=== PATIENT | female | born 1955 | race Caucasian/White ===

== ENCOUNTER 2016-05-03 15:31 | Emergency (ER) | payer OTHER ==
[2016-05-03] MEDS ORDERED: HYDROmorphone 1 MG/ML 1 ML SYRINGE IVP STA (16:08)
[2016-05-03] MEDS ORDERED: SODIUM CHLORIDE 0.9% 500 ML IV STA (16:08)
[2016-05-03] MEDS ORDERED: ONDANSETRON 4 MG/2 ML VIAL IVP STA (16:09)
--- NOTE | 2016-05-03 16:26 | ED ---
Abdominal Pain HPI - General Chief Complaint: Abdominal Pain Stated Complaint: abdominal pain Time Seen by Provider: 05/03/16 15:52 Source: patient Mode of arrival: ambulatory - History of Present Illness Initial Comments: Extremity 1-year-old female patient comes in with complaints of right lower quadrant abdominal pain that radiates to her back. Patient states that this pain started last evening and has worsened today. Patient describes the pain as sharp and stabbing. She states it gets worse with any movement. Patient states she's taken some ibuprofen but has not helped with the pain at all. Patient states the pain is constant. is nauseated, but denies any vomiting. Patient has been having diarrhea for the last 2 days she does describes the stool as "black". Sent also was treated last Wednesday and for epistaxis at [facility]. On she had packing placed to the right nare was started on Augmentin. Patient states that she bled a lot at that time which caused her to be lightheaded. She states she swallowed a lot of blood. Patient denies any headache, dizziness, chest pain, weakness, hematuria, dysuria, urgency, or frequency. No fever or chills. She denies any history of bleeding disorders, denies having epistaxis in the past. Patient states that no lab work was performed at [facility]. - Related Data Home Medications Medication Instructions Recorded Confirmed Acetaminophen Tab [Tylenol Tab] 1,000 mg PO Q6HR PRN 05/03/16 05/03/16 Amoxic-Pot Clav 875-125Mg 1 tab PO Q12HR 05/03/16 05/03/16 [Augmentin 875-125] Oxymetazoline 0.05% Nasl Agra 2 spray EA NOSTRIL BID 05/03/16 05/03/16 [Afrin 0.05% Nasal Agra] Previous Rx's Medication Instructions Recorded Hydrocodone/Acetaminophen [Butler 1 tab PO Q6HR PRN #20 tab 05/03/16 5-325] Ondansetron Odt [Zofran Odt] 4 mg PO Q8HR PRN #10 tab 05/03/16 Tamsulosin [Flomax] 0.4 mg PO DAILY #7 cap 05/03/16 Allergies Allergy/AdvReac Type Severity Reaction Status Date / Time sulfamethoxazole Allergy Rash/Hives Verified 05/03/16 16:01 [From Bactrim] trimethoprim [From Bactrim] Allergy Rash/Hives Verified 05/03/16 16:01 Review of Systems ROS Statement: Those systems with pertinent positive or pertinent negative responses have been documented in the HPI. ROS Other: All systems not noted in ROS Statement are negative. Past Medical History Past Medical History: No Reported History History of Any Multi-Drug Resistant Organisms: None Reported Past Surgical History: No Surgical Hx Reported Past Psychological History: No Psychological Hx Reported Smoking Status: Never smoker Past Alcohol Use History: None Reported Past Drug Use History: None Reported General Exam Limitations: no limitations General appearance: alert, in no apparent distress Head exam: Present: atraumatic, normocephalic Eye exam: Present: normal appearance, PERRL, EOMI. Absent: scleral icterus, conjunctival injection, nystagmus, periorbital swelling Pupils: Present: normal accommodation ENT exam: Present: normal oropharynx, mucous membranes dry, other (Nasal packing present right nare). Absent: mucous membranes moist Neck exam: Present: normal inspection, full ROM. Absent: tenderness, meningismus, lymphadenopathy, thyromegaly Respiratory exam: Present: normal lung sounds bilaterally. Absent: respiratory distress, wheezes, rales, rhonchi Cardiovascular Exam: Present: regular rate, normal rhythm, normal heart sounds. Absent: irregular rhythm, systolic murmur, diastolic murmur, clicks GI/Abdominal exam: Present: soft, tenderness (Right lower quadrant, positive Rosving's Sign. ), rebound (Right Lower quadrant), normal bowel sounds. Absent : distended, guarding, rigid, diminished bowel sounds, hyperactive bowel sounds , hypoactive bowel sounds, organomegaly, mass, hernia Extremities exam: Present: normal inspection Back exam: Present: normal inspection. Absent: CVA tenderness (R), CVA tenderness (L) Neurological exam: Present: alert, oriented X3, CN II-XII intact Psychiatric exam: Present: normal affect, anxious Skin exam: Present: warm, dry, intact, pallor. Absent: normal color, rash, cyanosis, erythema, urticaria Course Vital Signs 05/03/16 15:44 Temperature 97.4 F L Pulse Rate 104 H Respiratory 20 Rate Blood Pressure 124/69 O2 Sat by Pulse 98 Oximetry - Reevaluation(s) Reevaluation #1: 05/03/16 17:14 Went into check on patient. Patient states pain nausea improved with medications. Did inform patient of urinary tract infection, but also informed patient that we will still be obtaining a CT of the abdomen and pelvis to evaluate for further abdominal processes. Patient agreed to have this test done. Will be waiting for that result. Medical Decision Making - Medical Decision Making 60-year-old female patient presented to emergency department today with complaints of right lower quadrant pain that radiated to her back. Her labs were unremarkable. Urinalysis shows large amount of blood and greater than [address] of the abdomen and pelvis was positive for a 3 mm stone in the right renal pelvis. Findings and patient symptoms consistent with kidney stone. She will be discharged home with a prescription for Butler, Flomax, and Zofran for symptom management. Patient instructed to follow up with the urologist. Instructed to return for any new, worsening, or concerning symptoms. Patient will continue Augmentin and keep her follow-up appointment with ENT for management of epistaxis and nasal packing. Patient verbalizes understanding and agrees with this plan. - Lab Data Result diagrams: 05/03/16 16:23 05/03/16 16:23 Lab Results 05/03/16 05/03/16 05/03/16 Range/Units 16:23 16:23 16:23 WBC 8.4 (3.8-10.6) k/uL RBC 4.48 (3.80-5.40) m/uL Hgb 13.7 (11.4-16.0) gm/dL Hct 41.4 (34.0-46.0) % MCV 92.5 (80.0-100.0) fL MCH 30.6 (25.0-35.0) pg MCHC 33.0 (31.0-37.0) g/dL RDW 13.5 (11.5-15.5) % Plt Count 359 (150-450) k/uL Neutrophils % 74 % Lymphocytes % 18 % Monocytes % 3 % Eosinophils % 2 % Basophils % 1 % Neutrophils # 6.2 (1.3-7.7) k/uL Lymphocytes # 1.5 (1.0-4.8) k/uL Monocytes # 0.3 (0-1.0) k/uL Eosinophils # 0.2 (0-0.7) k/uL Basophils # 0.1 (0-0.2) k/uL PT (9.0-12.0) sec INR (<1.1) APTT (22.0-30.0) sec Sodium 142 (137-145) mmol/L Potassium 4.5 (3.5-5.1) mmol/L Chloride 106 (98-107) mmol/L Carbon Dioxide 26 (22-30) mmol/L Anion Gap 10 mmol/L BUN 22 H (7-17) mg/dL Creatinine 0.77 (0.52-1.04) mg/dL Est GFR (MDRD) Af Amer >60 (>60 ml/min/1.73 sqM) Est GFR (MDRD) Non-Af >60 (>60 ml/min/1.73 sqM) Glucose 100 H (74-99) mg/dL Calcium 9.9 (8.4-10.2) mg/dL Total Bilirubin 0.7 (0.2-1.3) mg/dL AST 32 (14-36) U/L ALT 37 (9-52) U/L Alkaline Phosphatase 89 (38-126) U/L Total Protein 7.8 (6.3-8.2) g/dL Albumin 4.4 (3.5-5.0) g/dL Amylase 67 (30-110) U/L Lipase 117 (23-300) U/L Urine Color Dark Brown Urine Appearance Cloudy H (Clear) Urine pH 5.5 (5.0-8.0) Ur Specific [place] 1.026 (1.001-1.035) Urine Protein 1+ H (Negative) Urine Glucose (UA) Negative (Negative) Urine Ketones Trace H (Negative) Urine Blood Large H (Negative) Urine Nitrate Negative (Negative) Urine Bilirubin Negative (Negative) Urine Urobilinogen 3.0 (<2.0) mg/dL Ur Leukocyte Esterase Small H (Negative) Urine RBC >182 H (0-5) /hpf Urine Mucus Few H (None) /hpf Urine Yeast (Budding) Many H (None) /hpf Blood Type Blood Type Recheck Antibody Screen Spec Expiration Date 05/03/16 05/03/16 Range/Units 16:23 17:45 WBC (3.8-10.6) k/uL RBC (3.80-5.40) m/uL Hgb (11.4-16.0) gm/dL Hct (34.0-46.0) % MCV (80.0-100.0) fL MCH (25.0-35.0) pg MCHC (31.0-37.0) g/dL RDW (11.5-15.5) % Plt Count (150-450) k/uL Neutrophils % % Lymphocytes % % Monocytes % % Eosinophils % % Basophils % % Neutrophils # (1.3-7.7) k/uL Lymphocytes # (1.0-4.8) k/uL Monocytes # (0-1.0) k/uL Eosinophils # (0-0.7) k/uL Basophils # (0-0.2) k/uL PT 10.5 (9.0-12.0) sec INR 1.0 (<1.1) APTT 22.8 (22.0-30.0) sec Sodium (137-145) mmol/L Potassium (3.5-5.1) mmol/L Chloride (98-107) mmol/L Carbon Dioxide (22-30) mmol/L Anion Gap mmol/L BUN (7-17) mg/dL Creatinine (0.52-1.04) mg/dL Est GFR (MDRD) Af Amer (>60 ml/min/1.73 sqM) Est GFR (MDRD) Non-Af (>60 ml/min/1.73 sqM) Glucose (74-99) mg/dL Calcium (8.4-10.2) mg/dL Total Bilirubin (0.2-1.3) mg/dL AST (14-36) U/L ALT (9-52) U/L Alkaline Phosphatase (38-126) U/L Total Protein (6.3-8.2) g/dL Albumin (3.5-5.0) g/dL Amylase (30-110) U/L Lipase (23-300) U/L Urine Color Urine Appearance (Clear) Urine pH (5.0-8.0) Ur Specific [place] (1.001-1.035) Urine Protein (Negative) Urine Glucose (UA) (Negative) Urine Ketones (Negative) Urine Blood (Negative) Urine Nitrate (Negative) Urine Bilirubin (Negative) Urine Urobilinogen (<2.0) mg/dL Ur Leukocyte Esterase (Negative) Urine RBC (0-5) /hpf Urine Mucus (None) /hpf Urine Yeast (Budding) (None) /hpf Blood Type O Positive Blood Type Recheck No Antibody Screen NEGATIVE Spec Expiration Date 05/06/2016 - 3173 - Radiology Data Radiology results: report reviewed CT abdomen and pelvis with contrast shows a 3 mm calculus in the right renal pelvis near the UPJ. No hydronephrosis is evident bilaterally. KUB x-ray shows a nonobstructive bowel gas pattern. Disposition Clinical Impression: Kidney stone on right side Disposition: HOME SELF-CARE Condition: Stable Instructions: Kidney Stones (ED) Additional Instructions: Increase fluids. Take qnyy-vca-[id number] ibuprofen as well as prescription pain medication for pain control. Follow-up with urologist. Return for any new, worsening, or concerning symptoms. Prescriptions: Hydrocodone/Acetaminophen [Butler 5-325] 1 tab PO Q6HR PRN #20 tab PRN Reason: Pain Ondansetron Odt [Zofran Odt] 4 mg PO Q8HR PRN #10 tab PRN Reason: Nausea Tamsulosin [Flomax] 0.4 mg PO DAILY #7 cap Referrals: Rizwana Goncalves DO [Primary Care Provider] - 1-2 days Rico You MD [STAFF PHYSICIAN] - 1-2 days Time of Disposition: 18:21
[2016-05-03 16:41] LABS: Basophils # (A) 0.1 k/uL (0-0.2); Basophils % (A) 1 %; CH 30.9; CHCM 33.5; Eosinophils # (A) 0.2 k/uL (0-0.7); Eosinophils % (A) 2 %; HCT 41.4 % (34.0-46.0); HDW 2.33; HGB 13.7 gm/dL (11.4-16.0); Luc # (Auto) 0.14; Luc % (Auto) 2; Lymphocytes # (A) 1.5 k/uL (1.0-4.8); Lymphocytes % (A) 18 %; MCH 30.6 pg (25.0-35.0); MCV 92.5 fL (80.0-100.0); Mean Platelet Volume 8.4; Monocytes # (A) 0.3 k/uL (0-1.0); Monocytes % (A) 3 %; Neutrophils # (A) 6.2 k/uL (1.3-7.7); Neutrophils % (A) 74 %; RBC 4.48 m/uL (3.80-5.40); RDW 13.5 % (11.5-15.5); WBC 8.4 k/uL (3.8-10.6); WBC (Perox) 8.83
--- NOTE | 2016-05-03 16:46 | XR ---
EXAMINATION TYPE: XR KUB DATE OF EXAM: 05/03/2016 4:42 PM CLINICAL HISTORY: Right lower quadrant pain with diarrhea. TECHNIQUE: 2 upright KUB images of the abdomen are obtained. COMPARISON: None. FINDINGS: Scattered gas is seen in non-distended small bowel loops. Gas and fecal material is seen in non-distended colon. Cholecystectomy clips are present. Underlying scoliosis with multilevel spurr ing and disc space narrowing is seen. No pneumoperitoneum is present. Lung bases are clear. No suspic ious calcifications are noted. IMPRESSION: Overall nonobstructive bowel gas pattern.
[2016-05-03 16:49] LABS: Appearance,Urine Cloudy (Clear); Bilirubin,Urine Negative (Negative); Glucose,Urine (UA) Negative (Negative); Ketones,Urine Trace (Negative); Leukocyte Esterase,Urine Small (Negative); Mucus,Urine Few /hpf; Nitrite,Urine Negative (Negative); PH, Urine 5.5 (5.0-8.0); Particle Count 29627; Protein,Urine 1+ (Negative); RBC,Urine >182 /hpf (0-5); Specific Gravity,Urine 1.026 (1.001-1.035); UA Billing (MACRO vs. MICRO) MICRO
[2016-05-03 16:51] LABS: ALT 37 U/L (9-52); AST 32 U/L (14-36); Alkaline Phosphatase 89 U/L (38-126); Amylase 67 U/L (30-110); Anion Gap 10 mmol/L; Blood Urea Nitrogen 22 mg/dL (7-17); Calcium 9.9 mg/dL (8.4-10.2); Carbon Dioxide 26 mmol/L (22-30); Chloride 106 mmol/L (98-107); Glucose 100 mg/dL (74-99); Non-African American GFR(MDRD) >60 (>60 ml/min/1.73 sqM); Potassium 4.5 mmol/L (3.5-5.1); Sodium 142 mmol/L (137-145); Total Bilirubin 0.7 mg/dL (0.2-1.3); Total Protein 7.8 g/dL (6.3-8.2)
[2016-05-03] MEDS ORDERED: RX INFO: IV CONTRAST WAS GIVEN 1 EACH MISC MISCELLANE PRN (17:11)
--- NOTE | 2016-05-03 18:01 | CT ---
EXAMINATION TYPE: CT abdomen pelvis w con DATE OF EXAM: 05/03/2016 5:50 PM HISTORY: Generalized pain not further specified CT DLP: 1632.3mGycm Automated Exposure Control for Dose Reduction was Utilized. CONTRAST: CT scan of the abdomen and pelvis is performed without oral but with IV Contrast, patient injected wi th 100 mL of Omnipaque 300. COMPARISON: None. FINDINGS: LUNG BASES: Dependent atelectatic change in both lung bases is present. LIVER/GB: Cholecystectomy clips are noted. PANCREAS: No significant abnormality is seen. SPLEEN: No significant abnormality is seen. ADRENALS: No significant abnormality is seen. KIDNEYS: There are 2 simple appearing cysts upper to mid pole level left kidney lateral aspect. There is 2 mm calculus lower pole calyx right kidney on coronal image 53 and 3 mm calculus in the right re nal pelvis on coronal image 55. There is symmetric cortical medullary uptake and excretion from both kidneys without evidence of hydronephrosis or obstructing renal calculi bilaterally. No intraluminal calculus is seen in bladder. BOWEL: Appendix is unremarkable from the cecum. There is no suspicious small or large bowel dilatatio n. UTERUS/ADNEXA: No gross abnormality seen. LYMPH NODES: No greater than 1cm abdominal or pelvic lymph nodes are appreciated. OSSEOUS STRUCTURES: There is moderate to advanced multilevel disc space narrowing and spurring with m ultilevel vacuum disc phenomenon. There is old fracture or limbus vertebra anterior superior L4 endpl ate. There is multilevel spurring in the spine. OTHER: No significant additional abnormality is seen. IMPRESSION: There is 3 mm calculus in right renal pelvis near UPJ. No hydronephrosis is evident bilat erally.
[2016-05-03 18:07] LABS: Partial Thromboplastin Time 22.8 sec (22.0-30.0); Prothrombin Time 10.5 sec (9.0-12.0)
[2016-05-03 18:35] VITALS: BP 112/56; PULSE 69; RESP 16; TEMP 96.8
== END 2016-05-03 18:35 | disposition home or self-care (01) ==
LOC: EC 15:31
DX: N20.0 Calculus of kidney (principal); R19.7 Diarrhea, unspecified; Z79.899 Other long term (current) drug therapy; Z88.2 Allergy status to sulfonamides
CPT/HCPCS: 36415; 86900; 86901; 80053; 82150; 83690; 85025; 85610; 85730; 86850; 81001; 87086; 74000; 74177; 99284; 96374; 96375; 96361; J2405; J1170

== ENCOUNTER → 2016-05-07 | Outpatient (CLI) | payer OTHER | END | disposition home or self-care (01) | LOC: LABPAT 12:15 | PROVIDERS: ATTEND Urology | DX: Z01.818 Encounter for other preprocedural examination (principal); N20.0 Calculus of kidney; R53.83 Other fatigue | CPT/HCPCS: 93005 ==

== ENCOUNTER 2016-05-08 13:35 | Day surgery (SDC) | payer OTHER ==
[2016-05-06 13:38] VITALS: BMI 33.5
[~2016-05-08 13:35] MED LIST: DEXAMETHASONE SOD PHOSPHATE 10 MG/ML 1 ML VIAL IV ONE; HYDROmorphone 1 MG/ML 1 ML SYRINGE IVP PRN; LACTATED RINGERS 1,000 ML IV SCH; MIDAZOLAM 2 MG/2 ML VIAL IV PRN; ONDANSETRON 4 MG/2 ML VIAL IVP ONE; Pre Op ABX Message 1 EACH MISC MISCELLANE ONE; SCOPOLAMINE 1.5MG/72HR PATCH TRANSDERM ONE
[2016-05-08] MEDS ORDERED: LIDOCAINE 1% 20 ML VIAL (10MG/ML) FOR IV START INTRADERMA ONE (14:18)
[2016-05-08] MEDS ORDERED: fentaNYL (PF) 50 MCG/ML 2 ML AMP IV ONE (14:32)
[2016-05-08] MEDS ORDERED: HYDROmorphone (PF) 1 MG/ML ONE (15:58)
[2016-05-08] MEDS ORDERED: ROCURONIUM BROMIDE 10 MG/ML 10 ML VIAL IV ONE (15:58)
[2016-05-08] MEDS ORDERED: LIDOCAINE 1% INJ 10MG/ML (20 ML MDV) ONE (15:58)
[2016-05-08] MEDS ORDERED: NEOSTIGMINE 1 MG/ML 10 ML VIAL ONE (15:58)
[2016-05-08] MEDS ORDERED: ePHEDrine 50 MG/ML 1 ML AMP ONE (15:58)
[2016-05-08] MEDS ORDERED: SUCCINYLCHOLINE CHLORIDE 100 MG/5 ML SYR IV ONE (15:58)
[2016-05-08] MEDS ORDERED: MIDAZOLAM 2 MG/2 ML VIAL ONE (15:58)
[2016-05-08] MEDS ORDERED: PHENYLEPHRINE-0.9% NACL SYG 1 MG/10 ML SYRINGE ONE (15:58)
[2016-05-08] MEDS ORDERED: PROPOFOL 10 MG/ML 20 ML VIAL IV ONE (15:58)
[2016-05-08] MEDS ORDERED: SODIUM CHLORIDE 0.9% 50 ML with ceFAZolin 2,000 MG IV ONE ×2 (15:58)
[2016-05-08] MEDS ORDERED: GLYCOPYRROLATE 0.2 MG/ML 2 ML VIAL ONE (15:58)
[2016-05-08] MEDS ORDERED: LACTATED RINGERS 1,000 ML IV ONE (17:02)
[2016-05-08 17:58] VITALS: RESP 16; TEMP 97
--- NOTE | 2016-05-08 18:05 | P.OP ---
Date of Procedure: 05/08/16 Preoperative Diagnosis: Right renal calculi Postoperative Diagnosis: Same Procedure(s) Performed: Cystoscopy, right ureteroscopy with stone basketing, right ureteral stent insertion Anesthesia: MALLORYA Surgeon: Jeffrey Agarwal Estimated Blood Loss (ml): 20 IV fluids (ml): 700 Pathology: other (Renal calculus, sent for chemical analysis) Condition: stable Disposition: PACU Indications for Procedure: The patient is a 60-year-old white female who recently presented with right flank and right lower quadrant abdominal pain. She also reported urine to be dark brown in appearance, consistent with hematuria. A computed tomography scan showed a possible 3 mm right UPJ calculus, as well as a small lower pole calyceal calculus, with no evidence of hydronephrosis. No calcifications were seen on a plain radiograph. She now comes for ureteroscopic removal of the calculi. Operative Findings: Bleeding from right mid-pole mucosal perforation. Tiny right renal calculus was removed. Description of Procedure: The patient was taken to the operating room and placed in the dorsolithotomy position, with legs supported in Robert stirrups. The external genitalia was prepped and draped sterilely. The 30 lens was used to introduce the 19-Spanish Stortz cystoscopic sheath through the urethra and into the bladder under direct vision. The bladder was examined in its entirety. Both ureteral orifices were normal anatomic location and configuration. Specifically, the appearance of the ureteral orifices was not suggestive of a recently passed calculus. No tumors or foreign bodies were seen. A 0.038 inch Glidewire was passed through the cystoscope. The right ureteral orifice was cannulated, and the Glidewire was easily advanced up to the right renal pelvis. No calculi were seen alongside the wire as the wire was passed, and there was nothing to impede the passage of the wire. An 11/13-Spanish ureteral access catheter was then passed over the wire. The Olympus flexible ureteroscope was passed through the ureteral orifices catheter sheath, and it was advanced under direct vision into the right renal pelvis. The urine within the renal pelvis was immediately noted to be bloody, with several small clots. These were aspirated using a syringe, and ureteroscopy was repeated. Each calyx was examined. The upper pole calyces appeared normal. Within a midpole calyx was a mucosal perforation, which was oozing somewhat. A very small calcification was located within a lower pole calyx. This became dislodged, and each calyx was examined along with the renal pelvis. The calculus could not be located. The midpole calyx containing the mucosal perforation was reinspected. Within that calyx, outside the field of vision of the ureteroscope , a calculus was identified. A 1.9-Spanish nitinol basket was used to attempt to grasp the calculus, but this could not be done due to the location of the calculus within the calyx. Intermittent spurts of irrigant fluid were used to dislodge the calculus, such that it was then located in an area where it could be successfully basketed. It was removed along with the ureteroscope. It measured only approximately 1 mm in size, and was sent for chemical analysis. The Glidewire was passed through the ureteral access catheter and up to the right renal pelvis. The ureteral access catheter sheath was then removed, and the Glidewire was backloaded into the cystoscope, which was passed into the bladder. A 24 cm, 4.8-Spanish double-J ureteral stent was placed over the wire. Proper stent positioning was verified fluoroscopically and endoscopically. The bladder was emptied and the cystoscope removed. The patient tolerated the procedure well and was taken to the recovery room in stable condition.
[2016-05-08 19:33] VITALS: BP 115/74; PULSE 94
--- NOTE | 2016-05-09 06:30 | FL ---
EXAMINATION TYPE: FL guidance operating room DATE OF EXAM: 05/08/2016 6:07 PM CLINICAL HISTORY: Right-sided kidney stone TECHNIQUE: Fluoroscopy. COMPARISON: None. FINDINGS: Fluoroscopic guidance was provided during stone removal and ureter stent insertion procedu re performed by Dr. Agarwal. A total of 58 seconds of fluoroscopic time was utilized during the proce dure and single spot intraoperative image is acquired. Single image acquired shows proximal portion o f right double-J ureter stent. IMPRESSION: As Above.
== END 2016-05-08 20:41 | disposition home or self-care (01) ==
LOC: OR 13:35
PROVIDERS: ATTEND Urology
DX: N20.0 Calculus of kidney (principal); Z79.899 Other long term (current) drug therapy; Z88.2 Allergy status to sulfonamides
CPT/HCPCS: 52352; 52332; C2625; C1769; J2250; J1100; J2710; J2405; J2001; J3010; J1170; J0690; J2370; J0330; J2704; 82365

== ENCOUNTER → 2016-05-25 | Outpatient (CLI) | payer OTHER ==
--- NOTE | 2016-05-25 08:27 | US ---
EXAMINATION TYPE: US carotid duplex BILAT DATE OF EXAM: 05/25/2016 7:26 AM COMPARISON: NONE CLINICAL HISTORY: I63.9 Cerebral Infarction unspecified. EXAM MEASUREMENTS: RIGHT: Peak Systolic Velocity (PSV) cm/sec ----- Right CCA: 78.3 ----- Right ICA: 74.9 ----- Right ECA: 71.1 ICA/CCA ratio: 0.95 RIGHT: End Diastole cm/sec ----- Right CCA: 22.6 ----- Right ICA: 32.7 ----- Right ECA: 13.9 LEFT: Peak Systolic Velocity (PSV) cm/sec ----- Left CCA: 78.7 ----- Left ICA: 71.7 ----- Left ECA: 57.9 ICA/CCA ratio: 0.91 LEFT: End Diastole cm/sec ----- Left CCA: 26.4 ----- Left ICA: 26.5 ----- Left ECA: 10.5 VERTEBRALS (direction of flow): Right Vertebral: Antegrade Left Vertebral: Antegrade Minimal plaque, no significant velocity elevations. IMPRESSION: I DO NOT SEE EVIDENCE OF A HEMODYNAMICALLY SIGNIFICANT STENOSIS IN EITHER CAROTID SYSTEM. Criteria for Assigning % of Stenosis / Diameter reduction (Estimation based on the indirect measurements of the internal carotid artery velocities (ICA PSV). 1. Normal (no stenosis)=ICA PSV < 125 cm/s: ratio < 2.0: ICA EDV<40 cm/s. 2. Less than 50% stenosis=ICA PSV < 125 cm/s: ratio < 2.0: ICA EDV<40 cm/s. 3. 50 to 69% stenosis=ICA PSV of 125 to 230 cm/s: ration 2.0 ? 4.0: ICA EDV 40-100 cm/s. 4. Greater than 70% stenosis to near occlusion= ICA PSV > 230 cm/s: ratio > 4.0: ICA EDV > 100 cm/s. 5. Near occlusion= ICA PSV velocities may be low or undetectable: variable ratio and ICA EDV. 6. Total occlusion=unable to detect flow.
== END ==
LOC: RADUSWWP 06:53
PROVIDERS: ATTEND Family Medicine
DX: I63.9 Cerebral infarction, unspecified (principal)
CPT/HCPCS: 93880

== ENCOUNTER → 2016-06-17 | Outpatient (CLI) | payer OTHER ==
--- NOTE | 2016-06-17 16:04 | US ---
EXAMINATION TYPE: US kidneys/renal and bladder DATE OF EXAM: 06/17/2016 1:50 PM COMPARISON: CT 2017 CLINICAL HISTORY: M20.0 Calculus of Kidney. Followup from RT renal stone retrieval April 2016 EXAM MEASUREMENTS: Right Kidney: 9.5 x 5.1 x 5.2 cm Left Kidney: 9.7 x 6.3 x 6.7 cm Post Void Residual Volume: 0 mL Right Kidney: upper pole cortical cyst = 0.7 x 1.1 x 0.7cm Left Kidney: at mid pole cortex 2 cysts are noted with larger = 3.4 x 3.1 x 2.4cm Bladder: wnl, but not fully distended Bilateral Jets seen: not seen after 3 minutes observation Normal Post Void Residual: Yes IMPRESSION: 1. Superior pole simple right renal cyst. 2. Mid pole simple left renal cysts.
== END | disposition home or self-care (01) ==
LOC: RADUSWWP 13:06
PROVIDERS: ATTEND Urology
DX: N28.1 Cyst of kidney, acquired (principal)
CPT/HCPCS: 76770

== ENCOUNTER 2016-07-17 05:44 | Day surgery (SDC) | payer OTHER ==
[2016-07-15 08:55] VITALS: BMI 34.3
[2016-07-17 06:23] VITALS: RESP 18
[2016-07-17] MEDS ORDERED: SODIUM CHLORIDE 0.9% 250 ML IV ONE (06:24)
[2016-07-17] MEDS: BENZOCAINE SPRAY 100 APPLIC/CAN MUCOUS MEM ONE ×3 (07:32→07:44)
[2016-07-17] MEDS ORDERED: MIDAZOLAM 2 MG/2 ML VIAL IVP ONE ×2 (07:43→07:46)
[2016-07-17] MEDS ORDERED: fentaNYL (PF) 50 MCG/ML 2 ML AMP IV ONE (07:43)
[2016-07-17 08:37] VITALS: TEMP 98
[2016-07-17 09:00] VITALS: BP 109/56; PULSE 69
--- NOTE | 2016-07-17 09:07 | ECHOT ---
DATE OF SERVICE: 07/17/2016 PERFORMING PHYSICIAN: Atul Ellis MD, furnace converter. PROCEDURE PERFORMED: Transesophageal echocardiogram. INDICATION: This is a pleasant 60-year-old female patient who had a stroke recently. She was seen and evaluated by Dr. Acuna as well as by Dr. Gary and the PHYLLIS was recommended to rule out any cardiac source of embolization. SEDATION: Conscious sedation was performed using 2 mg of Versed and 50 mcg of fentanyl in divided doses. The sedation length was about 30 minutes. COMPLICATIONS: None. PROCEDURE DESCRIPTION: After obtaining an informed consent, explaining the procedure, benefits, risks, complications and alternatives, the patient was brought to the transesophageal echocardiogram suite. A pulse oximetry and heart rate monitors were attached to the patient prior to the procedure. The patient's throat was sprayed using lidocaine locally. Following that, the patient was turned into left lateral position. A bite guard was placed and the patient was then sedated with the above doses of Versed and fentanyl in divided doses. Following that, the transesophageal echocardiogram probe was advanced through the bite guard into the mid esophagus where 2-D echocardiogram images as well as color Doppler images of various cardiac structures were obtained. We evaluated the interatrial septum using 2-D echocardiogram, color Doppler, and contrast study. The procedure was completed. There were no complications. FINDINGS: The left ventricular dimension and systolic function appeared to be within normal limits. The right ventricle appeared to be within normal limits for dimension as well. The left atrium appeared to be within normal limits. The left atrial appendage appeared to be normal without any evidence of thrombus. The interatrial septum appeared to be aneurysmal with evidence of patent jones ovale and [id number] shunt identified. The aortic valve is thickened and calcified, but it is trileaflet valve without stenosis or regurgitation. The mitral valve seems to be normal with trace MR. Normal tricuspid valve and pulmonic valve. CONCLUSION: 1. Aneurysmal interatrial septum with evidence of patent jones ovale and [id number] shunt. 2. Normal left atrial appendage without any evidence of thrombus. 3. Normal left ventricular dimension and systolic function. 4. Normal cardiac chamber sizes. 5. Aortic sclerosis without stenosis or insufficiency. 6. Thickened mitral valve leaflets with mild mitral regurgitation. 7. Normal tricuspid valve and pulmonic valve. 8. Normal aortic root dimension. 9. No evidence of pericardial effusion.
== END 2016-07-17 09:15 | disposition home or self-care (01) ==
LOC: CATHCVL 05:44
PROVIDERS: ATTEND Internal Medicine Interventional Cardiology
DX: I08.0 Rheumatic disorders of both mitral and aortic valves (principal); Q21.1 Atrial septal defect; E78.5 Hyperlipidemia, unspecified; E66.9 Obesity, unspecified; Z68.30 Body mass index [BMI] 30.0-30.9, adult; Z88.2 Allergy status to sulfonamides
CPT/HCPCS: 93312; 93320; 93325; 99152; J2250; J3010

== ENCOUNTER 2016-08-07 06:16 | Day surgery (SDC) | payer OTHER ==
[2016-08-05 14:46] VITALS: BMI 34.3
[~2016-08-07 06:16] MED LIST changes: -DEXAMETHASONE SOD PHOSPHATE 10 MG/ML 1 ML VIAL IV ONE; -HYDROmorphone 1 MG/ML 1 ML SYRINGE IVP PRN; -LACTATED RINGERS 1,000 ML IV SCH; -MIDAZOLAM 2 MG/2 ML VIAL IV PRN; -ONDANSETRON 4 MG/2 ML VIAL IVP ONE; -Pre Op ABX Message 1 EACH MISC MISCELLANE ONE; -SCOPOLAMINE 1.5MG/72HR PATCH TRANSDERM ONE; +ceFAZolin 2 GM in SODIUM CHLORIDE 0.9% 100 ML IVPB ONE
[2016-08-07 07:12] LABS: Basophils % (A) 0 %; CH 30.2; CHCM 32.4; Eosinophils # (A) 0.1 k/uL (0-0.7); Eosinophils % (A) 2 %; HCT 43.3 % (34.0-46.0); HDW 2.23; HGB 13.8 gm/dL (11.4-16.0); Luc # (Auto) 0.13; Luc % (Auto) 2; Lymphocytes # (A) 1.7 k/uL (1.0-4.8); Lymphocytes % (A) 22 %; MCH 29.9 pg (25.0-35.0); MCHC 31.9 g/dL (31.0-37.0); MCV 93.8 fL (80.0-100.0); Mean Platelet Volume 7.3; Monocytes # (A) 0.4 k/uL (0-1.0); Monocytes % (A) 5 %; Neutrophils # (A) 5.2 k/uL (1.3-7.7); Neutrophils % (A) 69 %; RBC 4.62 m/uL (3.80-5.40); WBC 7.6 k/uL (3.8-10.6); WBC (Perox) 7.49
[2016-08-07] MEDS ORDERED: MIDAZOLAM 2 MG/2 ML VIAL IV ONE ×3 (07:50→08:25)
[2016-08-07] MEDS ORDERED: LIDOCAINE 2% INJ 20 MG/ML SQ ONE (07:56)
[2016-08-07] MEDS: SODIUM CHLORIDE 0.9% 1,000 ML IV SCH (08:06)
[2016-08-07] MEDS ORDERED: HEPARIN SODIUM 1,000 UNIT/ML VIAL IV ONE (08:08)
[2016-08-07] MEDS ORDERED: HYDROmorphone 2 MG/ML 1 ML SYRINGE IV ONE (08:44)
[2016-08-07] MEDS ORDERED: IOHEXOL 300 MG/ML 50 ML BOTTLE INJ ONE (09:11)
[2016-08-07] MEDS ORDERED: SODIUM CHLORIDE 0.9% 1,000 ML IV SCH (09:30)
[2016-08-07 09:41] LABS: Anion Gap 15 mmol/L; Blood Urea Nitrogen 22 mg/dL (7-17); Carbon Dioxide 19 mmol/L (22-30); Chloride 112 mmol/L (98-107); Glucose 82 mg/dL (74-99); Non-African American GFR(MDRD) >60 (>60 ml/min/1.73 sqM); Sodium 146 mmol/L (137-145)
[2016-08-07] MEDS: ACETAMINOPHEN TAB 325 MG TAB PO PRN ×2 (11:49→20:19)
[2016-08-07] MEDS ORDERED: HYDROmorphone 1 MG/ML 1 ML SYRINGE IVP STA (11:54)
[2016-08-07 15:26] VITALS: RESP 18
[2016-08-07] MEDS ORDERED: ONDANSETRON 4 MG/2 ML VIAL IVP STA (16:15)
--- NOTE | 2016-08-07 18:50 | LTR ---
August 07, 2016 RE: Ruma Linn Dear Dr. Goncalves and Dr. Acuna, Ms. Ruma Linn underwent successful percutaneous closure of patent jones ovale using a 25 mm PFO occluder device with good results and without any complication. I would like to thank you for allowing me to participate in her care. Please do not hesitate to call if you have any questions or concerns. Sincerely, CASSANDRA HAND MD
--- NOTE | 2016-08-07 18:54 | CE ---
DATE OF SERVICE: August 07, 2016 PROCEDURE PERFORMED: 1. Intracardiac echocardiogram imaging. 2. Successful percutaneous closure of patent foramen ovale using 25 mm patent foramen ovale occluder device with good results. 3. Right atrial angiogram. INDICATION: This is a pleasant 60-year-old female patient who suffered from stroke recently. She underwent transesophageal echocardiogram which showed PFO with [id number] shunt. I discussed with her the options between medical versus invasive procedure and she would like to close the PFO. APPROACH: Right common femoral vein. COMPLICATIONS: None. LEVEL OF SEDATION: Moderate 54 minutes. PROCEDURE DESCRIPTION: After obtaining informed consent, the patient was brought to the cardiac cath lab tech. The right common femoral vein was cannulated x2, using micropuncture technique, the micropuncture wire passed easily. Then I placed two 8 Irish sheaths in the right groin. Subsequently anticoagulation was initiated using heparin and the patient was given a weight -based heparin for a total of 9000 units of heparin IV. After that, I did advance the intracardiac echocardiogram catheter to the right atrium where we did interrogate the interatrial septal on multiple views. Subsequently, I crossed the patent foramen ovale using an 0.035 Glidewire, where the wire was advanced to the left upper pulmonary vein. After that, I did some measurement of the patent foramen ovale using color flow Doppler and I decided to pursue with a 25 mm patent foramen ovale occluder device. At that point, I did exchange my 0.035 glide wire into 0.035 Amplatzer wire using multipurpose catheter. Subsequently, I did exchange my 11 cm 8 Irish sheath into the delivery sheath of the PFO occluder using an 0.035 over the 0.035 stiff Amplatzer wire. The sheath was advanced across the patent foramen ovale to the left atrial. After that, and after I prepped the 25 mm patent foramen ovale occluder device and loaded that device through the sheath I did deploy initially the left atrial occluder and subsequently I pulled the left atrial occluder and the sheath to touch the interatrial septum and I did deploy the right atrial occluder. I did multiple views to interrogate the device before I released the septal occluder device. After that, I did right atrial angiogram using the delivery sheath. The procedure was completed without any complication. POSTPROCEDURE MANAGEMENT: 1. Dual antiplatelet therapy. 2. Echocardiogram today and tomorrow. 3. Follow up with the patient.
[2016-08-07] MEDS: AMOXIC-POT CLAV 875-125MG 1 EACH TAB PO SCH (20:21)
[2016-08-07] MEDS ORDERED: ATORVASTATIN 10 MG TAB PO SCH (21:00)
[2016-08-08] MEDS: ACETAMINOPHEN TAB 325 MG TAB PO PRN ×2 (02:50→08:13)
[2016-08-08 05:23] VITALS: BP 108/67
[2016-08-08] MEDS: SODIUM CHLORIDE 0.9% 1,000 ML IV SCH (06:05)
[2016-08-08] MEDS: AMOXIC-POT CLAV 875-125MG 1 EACH TAB PO SCH (08:14)
--- NOTE | 2016-08-08 08:19 | XR ---
EXAMINATION TYPE: XR chest 2V DATE OF EXAM: 08/08/2016 COMPARISON: NONE TECHNIQUE: PA and lateral views submitted. HISTORY: Postop heart surgery FINDINGS: The lungs are clear and there is no pneumothorax, pleural effusion, or focal pneumonia. Appears be evidence of previous cardiac surgery. Hypertrophic and degenerative change of the spine. No overt trey lure. Apical pleural thickening noted. IMPRESSION: 1. No acute process.
[2016-08-08 08:45] VITALS: PULSE 60; TEMP 98.1
[2016-08-08] MEDS ORDERED: ASPIRIN 325 MG TAB PO SCH (09:00)
[2016-08-08] MEDS ORDERED: CLOPIDOGREL 75 MG TAB PO SCH (09:00)
--- NOTE | 2016-08-08 14:12 | ECHOF ---
Referral Reason:Post ASD/PFO Insertion MEASUREMENTS -------- HEIGHT: 162.6 cm WEIGHT: 90.7 kg BP: 108/67 RVIDd: 3.2 cm (< 3.3) IVSd: 1.3 cm (0.6 - 1.1) LVIDd: 3.7 cm (3.9 - 5.3) LVPWd: 1.3 cm (0.6 - 1.1) IVSs: 1.6 cm LVIDs: 2.5 cm LVPWs: 1.7 cm LA Diam: 3.1 cm (2.7 - 3.8) LAESV Index (A-L): 18.29 ml/m Ao Diam: 3.2 cm (2.0 - 3.7) AV Cusp: 2.2 cm (1.5 - 2.6) MV EXCURSION: 13.991 mm (> 18.000) MV EF SLOPE: 62 mm/s (70 - 150) EPSS: 0.6 cm MV E Robert: 0.78 m/s MV DecT: 269 ms MV A Robert: 0.93 m/s MV E/A Ratio: 0.84 RAP: 5.00 mmHg RVSP: 35.26 mmHg FINDINGS -------- Sinus rhythm. This was a technically good study. The left ventricular size is normal. There is mild concentric left ventricular hypertrophy. Overall left ventricular systolic function is normal with, an EF between 55 - 60 %. The right ventricle is normal in size and function. The left atrial size is normal. The right atrium is normal in size. There is an interatrial closure device in place without evidence of shunt. The aortic valve is trileaflet and appears structurally normal. The mitral valve is normal. There is trace mitral regurgitation. Mild tricuspid regurgitation present. There is mild pulmonary hypertension. The right ventricular systolic pressure, as measured by Doppler, is 35.26mmHg. Trace/mild (physiologic) pulmonic regurgitation. The aortic root size is normal. Normal inferior vena cava with normal inspiratory collapse consistent with estimated right atrial pressure of 5 mmHg. There is no pericardial effusion. CONCLUSIONS -------- 1. Sinus rhythm. 2. There is trace mitral regurgitation. 3. Mild tricuspid regurgitation present. 4. There is mild pulmonary hypertension. 5. The right ventricular systolic pressure, as measured by Doppler, is 35.26mmHg. 6. Trace/mild (physiologic) pulmonic regurgitation. 7. The aortic root size is normal. 8. Normal inferior vena cava with normal inspiratory collapse consistent with estimated right atrial pressure of 5 mmHg. 9. There is no pericardial effusion. 10. This was a technically good study. 11. The left ventricular size is normal. 12. There is mild concentric left ventricular hypertrophy. 13. Overall left ventricular systolic function is normal with, an EF between 55 - 60 %. 14. The right ventricle is normal in size and function. 15. The left atrial size is normal. 16. There is an interatrial closure device in place without evidence of shunt. 17. The aortic valve is trileaflet and appears structurally normal. PETROGRAPHY TEACHER: Jennifer Calle RDCS
[2016-08-09] MEDS ORDERED: CLOPIDOGREL 75 MG TAB PO SCH (09:00)
--- NOTE | 2016-08-11 07:51 | DS ---
DATE OF ADMISSION: 08/07/2016 DATE OF DISCHARGE: 08/08/2016 BRIEF HISTORY: This is a very pleasant 60-year-old female patient who suffered from stroke recently and underwent transesophageal echocardiogram which showed and evidence of patent jones ovale with [id number] shunt. She was admitted to the hospital on August 07 and underwent successful percutaneous closure of the patent foramen ovale using 25 mm PFO occluder device with good result and without any complication. The procedure was performed from the right groin through the right common femoral vein. The right groin is soft and nontender and without any bruises. The patient underwent an echocardiogram earlier today, which I reviewed and that showed the device is in place without any evidence of residual shunt. The patient is going to be discharged home on dual antiplatelet therapy and I will follow up with the patient in a week in the office with an echocardiogram.
== END 2016-08-08 10:18 | disposition home or self-care (01) ==
LOC: CATHCVL 06:16 → 6SEL 08:56 → CATHCVL 08-08 10:18
PROVIDERS: ATTEND Internal Medicine Interventional Cardiology
DX: Q21.1 Atrial septal defect (principal); I27.2 Other secondary pulmonary hypertension; I08.1 Rheumatic disorders of both mitral and tricuspid valves; I51.7 Cardiomegaly; I69.398 Other sequelae of cerebral infarction; H53.8 Other visual disturbances; E78.5 Hyperlipidemia, unspecified; E66.9 Obesity, unspecified; Z68.37 Body mass index [BMI] 37.0-37.9, adult; Z79.82 Long term (current) use of aspirin; Z79.899 Other long term (current) drug therapy; Z88.1 Allergy status to other antibiotic agents; Z88.2 Allergy status to sulfonamides
CPT/HCPCS: 99152; 99153 ×2; 93306; 93580; 93662; 86900; 86901; 80048; 85025; 86850; 71020; C1769 ×5; C1894; C1817; C1759; J2001; J2250; J1170 ×2; J0690; J2405; J1644; Q9967

== ENCOUNTER 2016-09-25 12:32 | Day surgery (SDC) | payer OTHER ==
[2016-09-22 16:02] VITALS: BMI 33.5
[~2016-09-25 12:32] MED LIST changes: +LACTATED RINGERS 1,000 ML IV SCH; +LIDOCAINE 1% 20 ML VIAL (10MG/ML) FOR IV START INTRADERMA PRN; -ceFAZolin 2 GM in SODIUM CHLORIDE 0.9% 100 ML IVPB ONE
[2016-09-25 13:08] VITALS: TEMP 97.5
[2016-09-25] MEDS ORDERED: PROPOFOL 10 MG/ML 20 ML VIAL IV ONE (13:25)
--- NOTE | 2016-09-25 13:27 | P.GSHP ---
History of Present Illness H&P Date: 09/25/16 Chief Complaint: Screening Patient presents today for screening colonoscopy. She has not had one recently. Last colonoscopy 7 years ago. Family history of colon cancer. Last colonoscopy was normal. No bowel related complaints. 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 History of Any Multi-Drug Resistant Organisms: None Reported Past Surgical History: Cholecystectomy Additional Past Surgical History / Comment(s): CYST ON FINGER, BUNIONECTOMY, SINUS SURGERY, CYSTO WITH URETEROSCOPY FOR STONE REMOVAL (05/08/16); percutanous closure of PFO with occluder device 08/07/16 Past Anesthesia/Blood Transfusion Reactions: No Reported Reaction Past Psychological History: No Psychological Hx Reported Smoking Status: Never smoker Past Alcohol Use History: None Reported Past Drug Use History: None Reported - Past Family History Mother Family Medical History: Cancer Additional Family Medical History / Comment(s): COLON CANCER Brother(s) Additional Family Medical History / Comment(s): HOLE IN HIS HEART. Medications and Allergies Home Medications Medication Instructions Recorded Confirmed Type Acetaminophen Tab [Tylenol] 650 mg PO Q6H PRN 07/15/16 09/25/16 History Atorvastatin [Lipitor] 10 mg PO HS 08/05/16 09/25/16 History Allergies Allergy/AdvReac Type Severity Reaction Status Date / Time latex Allergy Rash/Hives Verified 09/22/16 15:49 sulfamethoxazole Allergy Rash/Hives Verified 09/22/16 15:49 [From Bactrim] trimethoprim [From Bactrim] Allergy Rash/Hives Verified 09/22/16 15:49 Surgical - Exam Vital Signs Temp Pulse Resp BP Pulse Ox 97.5 F L 88 18 142/82 97 09/25/16 13:04 09/25/16 13:04 09/25/16 13:04 09/25/16 13:04 09/25/16 13:04 Physical exam: General: Well-developed, well-nourished HEENT: Normocephalic, sclerae nonicteric Abdomen: Nontender, nondistended Extremities: No edema Neuro: Alert and oriented Assessment and Plan (1) Colon cancer screening Narrative/Plan: Will proceed with colonoscopy at this time. Status: Acute
--- NOTE | 2016-09-25 13:47 | P.PCN ---
Date of Procedure: 09/25/16 Preoperative Diagnosis: Postoperative Diagnosis: Procedure(s) Performed: PREOPERATIVE DIAGNOSIS: Colon cancer screening POSTOPERATIVE DIAGNOSIS: Descending colon polyp 3, mild proctitis PROCEDURE: Colonoscopy with snare polypectomy and biopsy ANESTHESIA: MAC SURGEON: Juan Ashley M.D. SPECIMENS: Descending colon polyps, rectum ENDOSCOPIC PROCEDURE: The patient was placed on the endoscopy table in the left decubitus position. The Olympus colonoscope was inserted into the anus and passed under direct visualization to the base of the cecum. The appendiceal orifice was visualized. From that point the scope was slowly withdrawn inspecting all surfaces carefully. There were no neoplastic inflammatory or polypoid lesions throughout the cecum, ascending, and transverse colon. In the descending colon 3 separate small polyps were identified and removed using the snare with cautery technique. The remainder of the descending and sigmoid colon appeared normal. In the distal rectum there was mild inflammatory changes present and several cold biopsies were taken. There was no visible diverticulosis present. Digital rectal examination was normal. The patient was taken to the recovery room in stable condition per anesthesia guidelines. RECOMMENDATIONS: Await biopsy results. Implants: Indications for Procedure: Operative Findings: Description of Procedure:
[2016-09-25 14:26] VITALS: RESP 16
[2016-09-25 14:38] VITALS: BP 133/72; PULSE 70
== END 2016-09-25 14:53 | disposition home or self-care (01) ==
LOC: ORWHC2ENDO 12:32
PROVIDERS: ATTEND Surgery
DX: Z12.11 Encounter for screening for malignant neoplasm of colon (principal); K52.9 Noninfective gastroenteritis and colitis, unspecified; K62.89 Other specified diseases of anus and rectum; Z85.038 Personal history of other malignant neoplasm of large intestine; Z86.73 Personal history of transient ischemic attack (TIA), and cerebral infarction without residual deficits; Z79.3 Long term (current) use of hormonal contraceptives; Z79.899 Other long term (current) drug therapy; Z79.02 Long term (current) use of antithrombotics/antiplatelets; Z79.82 Long term (current) use of aspirin; Z88.2 Allergy status to sulfonamides
CPT/HCPCS: 88305; 45380; 45385; J2704

== ENCOUNTER 2017-06-07 07:26 | Emergency (ER) | payer OTHER ==
[2017-06-07 07:32] VITALS: TEMP 96.9
[2017-06-07] MEDS ORDERED: OXYMETAZOLINE 0.05% NASL SPRAY 1 SPRAY BOTTLE NASAL STA (07:44)
--- NOTE | 2017-06-07 07:56 | ED ---
General Adult HPI - General Chief complaint: ENT Stated complaint: Bloody nose Time Seen by Provider: 06/07/17 07:35 Source: patient, RN notes reviewed Mode of arrival: ambulatory Limitations: no limitations - History of Present Illness Initial comments: 61-year-old female presents for evaluation of nosebleed. Bleeding again several hours prior to arrival. Patient states she did have a nosebleed yesterday this resolved spontaneously. She is not on any anticoagulation, she does take daily aspirin, she didn't take this this morning. Denies any specific trauma to the nose. No URI symptoms. Patient has history of nose bleeds in the past. - Related Data Home Medications Medication Instructions Recorded Confirmed Atorvastatin [Lipitor] 10 mg PO HS 08/05/16 06/07/17 Aspirin EC [Ecotrin Low Dose] 324 mg PO DAILY 06/07/17 06/07/17 Multivitamins, Thera [Multivitamin 1 tab PO DAILY 06/07/17 06/07/17 (formulary)] Sodium Chloride [Andrew] 1 spray EA NOSTRIL BID PRN 06/07/17 06/07/17 Previous Rx's Medication Instructions Recorded Amoxic-Pot Clav 875-125Mg 1 tab PO Q12HR #10 tablet 06/07/17 [Augmentin 875-125] Allergies Allergy/AdvReac Type Severity Reaction Status Date / Time latex Allergy Rash/Hives Verified 06/07/17 08:13 sulfamethoxazole Allergy Rash/Hives Verified 06/07/17 08:13 [From Bactrim] trimethoprim [From Bactrim] Allergy Rash/Hives Verified 06/07/17 08:13 Review of Systems ROS Statement: Those systems with pertinent positive or pertinent negative responses have been documented in the HPI. ROS Other: All systems not noted in ROS Statement are negative. 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 History of Any Multi-Drug Resistant Organisms: None Reported Past Surgical History: Cholecystectomy Additional Past Surgical History / Comment(s): CYST ON FINGER, BUNIONECTOMY, SINUS SURGERY, CYSTO WITH URETEROSCOPY FOR STONE REMOVAL (05/08/16); percutanous closure of PFO with occluder device 08/07/16 Past Anesthesia/Blood Transfusion Reactions: No Reported Reaction Past Psychological History: No Psychological Hx Reported Smoking Status: Never smoker Past Alcohol Use History: None Reported Past Drug Use History: None Reported - Past Family History Mother Family Medical History: Cancer Additional Family Medical History / Comment(s): COLON CANCER Brother(s) Additional Family Medical History / Comment(s): HOLE IN HIS HEART. General Exam Limitations: no limitations General appearance: alert, in no apparent distress Head exam: Present: atraumatic, normocephalic Eye exam: Present: normal appearance, PERRL, EOMI ENT exam: Present: other (Anterior right nasal hemorrhage, no hematoma, no no active bleeding from posterior oropharynx) Respiratory exam: Present: normal lung sounds bilaterally. Absent: respiratory distress Cardiovascular Exam: Present: regular rate, normal rhythm Neurological exam: Present: alert, oriented X3. Absent: motor sensory deficit Course Vital Signs 06/07/17 07:29 Temperature 96.9 F L Pulse Rate 89 Respiratory 20 Rate Blood Pressure 156/74 O2 Sat by Pulse 100 Oximetry - Reevaluation(s) Reevaluation #1: 06/07/17 08:38 On reevaluation, there is no anterior or posterior bleeding. Procedures - Procedures Initial comment: Left Nostril packing with Merocel. After Afrin is applied to bilateral nostrils , there is continued bleeding, Merocel is placed in the right nostril with bacitracin ointment. Patient tolerates procedure well. Medical Decision Making - Medical Decision Making 61-year-old female with right epistaxis. Patient has persistent bleeding despite Afrin, Lizzie is placed with hemostasis achieved. No anterior or posterior bleeding. Patient will follow-up with ENT. She is started on prophylactic antibiotics. Disposition Clinical Impression: Epistaxis Disposition: HOME SELF-CARE Condition: Good Instructions: Nosebleed (ED) Prescriptions: Amoxic-Pot Clav 875-125Mg [Augmentin 875-125] 1 tab PO Q12HR #10 tablet Referrals: Rizwana Goncalves DO [Primary Care Provider] - 1-2 days Oscar Iyer DO [Doctor of Osteopathic Medicine] - 1-2 days Time of Disposition: 08:41
[2017-06-07 08:49] VITALS: BP 159/74; PULSE 79; RESP 18
== END 2017-06-07 08:42 | disposition home or self-care (01) ==
LOC: EC 07:26
DX: R04.0 Epistaxis (principal); Z86.73 Personal history of transient ischemic attack (TIA), and cerebral infarction without residual deficits; Z79.82 Long term (current) use of aspirin; Z79.899 Other long term (current) drug therapy; Z91.040 Latex allergy status; Z88.2 Allergy status to sulfonamides
CPT/HCPCS: 30901; 99283

== ENCOUNTER → 2017-09-30 | Outpatient (CLI) | payer OTHER ==
--- NOTE | 2017-09-30 10:09 | CT ---
EXAMINATION TYPE: CT abdomen pelvis wo con DATE OF EXAM: 09/30/2017 COMPARISON: Renal ultrasound dated 06/17/2016 HISTORY: Left sided flank pain with history of renal stones CT DLP: 1689.3 mGycm Automated exposure control for dose reduction was used. TECHNIQUE: Helical acquisition of images was performed from the lung bases through the pelvis. FINDINGS: LUNG BASES: Minimal bibasilar subsegmental atelectasis is seen. Left axillary 9 mm mass is seen on im age 1 of series 3 and could relate to a lymph node, however no focal macroscopic fat is appreciated a nd therefore correlation with any recent mammography is recommended if available at outside instituti on. LIVER/GB: Unenhanced liver is of unremarkable morphology. Gallbladder surgically absent. PANCREAS: No significant abnormality is seen. SPLEEN: No splenomegaly. ADRENALS: No significant abnormality is seen. KIDNEYS: There is a bilobed simple appearing 3.9 x 5.2 x 3.6 cm left midpole renal cyst with exophyti c component. No appreciable internal septa, associated calcifications or mural nodules are seen. Ther e is a 3 mm left upper pole nonobstructing renal calculus. No hydronephrosis. On the right there is a subtle approximately 7 mm renal cyst in the upper pole, poorly visualized without intravenous contra st. No hydronephrosis or right-sided renal calculi. No renal sinus fat stranding. No ureteral dilatat ion. No calculi within the urinary bladder. The previously seen 3 mm calculus at the right ureteropel grzegorz junction has passed in the interim in comparison the prior of 05/03/2016. FREE AIR: No free air is visualized RETROPERITONEAL ADENOPATHY: None visualized REPRODUCTIVE ORGANS: No significant abnormality is seen URINARY BLADDER: No significant abnormality is seen. PELVIC ADENOPATHY: None visualized. OSSEOUS STRUCTURES: Moderate multilevel degenerative change of the spine is noted with probable limb us vertebrae again noted of the superior L4 endplate. BOWEL: Few sigmoid diverticula are present without pericolonic fat stranding. No small or large diane l dilatation is seen. OTHER: There is a very small fat filled periumbilical hernia. IMPRESSION: 1. INTERVAL PASSAGE OF A 3 MM CALCULUS PREVIOUSLY AT THE RIGHT RENAL PELVIS ON THE EXAM OF 05/03/2016. NO REMAINING RIGHT RENAL CALCULI OR EVIDENCE OF OBSTRUCTIVE UROPATHY. 2. SOLITARY 3 MM NONOBSTRUCTING LEFT UPPER POLE RENAL CALCULUS. 3. SIMPLE APPEARING BILOBED LEFT MID POLE PARTIALLY EXOPHYTIC RENAL CYST AND SUBCENTIMETER RIGHT CASPER L CYST. 4. SUBCENTIMETER LEFT AXILLARY MASS THAT COULD REPRESENT A LOW AXILLARY OR INTRAMAMMARY LYMPH NODE, H OWEVER NO MACROSCOPIC FAT IS SEEN AND THEREFORE CORRELATION WITH ANY RECENT MAMMOGRAPHY IS RECOMMENDE D. IF NOT RECENTLY PERFORMED, MAMMOGRAPHY WOULD BE RECOMMENDED.
== END | disposition home or self-care (01) ==
LOC: RADCTMAIN 09:27
PROVIDERS: ATTEND Urology
DX: N20.0 Calculus of kidney (principal); N28.1 Cyst of kidney, acquired
CPT/HCPCS: 74176

== ENCOUNTER 2017-10-16 16:18 | Emergency (ER) | payer OTHER ==
[2017-10-16 16:27] VITALS: PULSE 72; RESP 18
[2017-10-16] MEDS ORDERED: SODIUM CHLORIDE 0.9% 1,000 ML IV STA (17:00)
[2017-10-16] MEDS ORDERED: KETOROLAC 30 MG/ML 1 ML VIAL IVP STA (17:00)
[2017-10-16] MEDS ORDERED: ONDANSETRON 4 MG/2 ML VIAL IVP STA (17:00)
[2017-10-16] MEDS ORDERED: HYDROmorphone 0.5 MG/0.5 ML SYRINGE IVP STA (17:00)
--- NOTE | 2017-10-16 17:08 | ED ---
General Adult HPI - General Chief complaint: Abdominal Pain Stated complaint: Kidney pain Time Seen by Provider: 10/16/17 16:25 Source: patient, RN notes reviewed Mode of arrival: ambulatory Limitations: no limitations - History of Present Illness Initial comments: This is a 61-year-old female presents with flank pain to the emergency department today. Patient has a history of kidney stone and she recently had a CAT scan it was told she had a kidney stone in the kidney. Patient states today the pain got much worse about 10:00 this morning and she started vomiting. Patient already has a urologist that she sees. Patient denies any fever chills. Patient denies any hematuria or urinary frequency. Patient denies any abdominal pain. Patient states most of her pain is the left flank. - Related Data Home Medications Medication Instructions Recorded Confirmed Atorvastatin [Lipitor] 10 mg PO HS 08/05/16 06/07/17 Aspirin EC [Ecotrin Low Dose] 324 mg PO DAILY 06/07/17 06/07/17 Multivitamins, Thera [Multivitamin 1 tab PO DAILY 06/07/17 06/07/17 (formulary)] Sodium Chloride [[place]] 1 spray EA NOSTRIL BID PRN 06/07/17 06/07/17 Previous Rx's Medication Instructions Recorded Amoxic-Pot Clav 875-125Mg 1 tab PO Q12HR #10 tablet 06/07/17 [Augmentin 875-125] Ketorolac [Toradol] 10 mg PO Q6HR #15 tab 10/16/17 Ondansetron Odt [Zofran Odt] 4 mg PO Q8HR PRN #10 tab 10/16/17 Tamsulosin [Flomax] 0.4 mg PO DAILY #7 cap 10/16/17 Allergies Allergy/AdvReac Type Severity Reaction Status Date / Time latex Allergy Rash/Hives Verified 10/16/17 16:27 sulfamethoxazole Allergy Rash/Hives Verified 10/16/17 16:27 [From Bactrim] trimethoprim [From Bactrim] Allergy Rash/Hives Verified 10/16/17 16:27 Review of Systems ROS Statement: Those systems with pertinent positive or pertinent negative responses have been documented in the HPI. ROS Other: All systems not noted in ROS Statement are negative. 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 History of Any Multi-Drug Resistant Organisms: None Reported Past Surgical History: Cholecystectomy Additional Past Surgical History / Comment(s): CYST ON FINGER, BUNIONECTOMY, SINUS SURGERY, CYSTO WITH URETEROSCOPY FOR STONE REMOVAL (05/08/16); percutanous closure of PFO with occluder device 08/07/16 Past Anesthesia/Blood Transfusion Reactions: No Reported Reaction Past Psychological History: No Psychological Hx Reported Smoking Status: Never smoker Past Alcohol Use History: None Reported Past Drug Use History: None Reported - Past Family History Mother Family Medical History: Cancer Additional Family Medical History / Comment(s): COLON CANCER Brother(s) Additional Family Medical History / Comment(s): HOLE IN HIS HEART. General Exam - General Exam Comments Initial Comments: GENERAL: Patient is well-developed and well-nourished. Patient is nontoxic and well- hydrated and is in mild distress. ENT: Neck is soft and supple. No significant lymphadenopathy is noted. Oropharynx is clear. Moist mucous membranes. Neck has full range of motion without eliciting any pain. EYES: The sclera were anicteric and conjunctiva were pink and moist. Extraocular movements were intact and pupils were equal round and reactive to light. Eyelids were unremarkable. PULMONARY: Unlabored respirations. Good breath sounds bilaterally. No audible rales rhonchi or wheezing was noted. CARDIOVASCULAR: There is a regular rate and rhythm without any murmurs gallops or rubs. ABDOMEN: Soft and nontender with normal bowel sounds. No palpable organomegaly was noted. There is no palpable pulsatile mass. SKIN: Skin is clear with no lesions or rashes and otherwise unremarkable. NEUROLOGIC: Patient is alert and oriented x3. Cranial nerves II through XII are grossly intact. Motor and sensory are also intact. Normal speech, volume and content. Symmetrical smile. MUSCULOSKELETAL: Normal extremities with adequate strength and full range of motion. No lower extremity swelling or edema. No calf tenderness. LYMPHATICS: No significant lymphadenopathy is noted PSYCHIATRIC: Normal psychiatric evaluation. Normal interpersonal interactions appears functionally intact in deals appropriately with others. No signs of depression. No signs of anxiety. Limitations: no limitations Course Vital Signs 10/16/17 16:25 Temperature 98.2 F Pulse Rate 72 Respiratory 18 Rate Blood Pressure 149/83 O2 Sat by Pulse 98 Oximetry Medical Decision Making - Lab Data Result diagrams: 10/16/17 17:12 10/16/17 19:10 Lab Results 10/16/17 10/16/17 10/16/17 Range/Units 17:12 17:12 19:10 WBC 11.6 H (3.8-10.6) k/uL RBC 4.74 (3.80-5.40) m/uL Hgb 14.6 (11.4-16.0) gm/dL Hct 44.2 (34.0-46.0) % MCV 93.1 (80.0-100.0) fL MCH 30.8 (25.0-35.0) pg MCHC 33.1 (31.0-37.0) g/dL RDW 13.6 (11.5-15.5) % Plt Count 319 (150-450) k/uL Neutrophils % 90 % Lymphocytes % 7 % Monocytes % 2 % Eosinophils % 1 % Basophils % 0 % Neutrophils # 10.3 H (1.3-7.7) k/uL Lymphocytes # 0.8 L (1.0-4.8) k/uL Monocytes # 0.2 (0-1.0) k/uL Eosinophils # 0.1 (0-0.7) k/uL Basophils # 0.0 (0-0.2) k/uL Sodium 140 (137-145) mmol/L Potassium 6.1 H 4.5 (3.5-5.1) mmol/L Chloride 110 H (98-107) mmol/L Carbon Dioxide 20 L (22-30) mmol/L Anion Gap 10 mmol/L BUN 26 H (7-17) mg/dL Creatinine 0.90 (0.52-1.04) mg/dL Est GFR (CKD-EPI)AfAm 80 (>60 ml/min/1.73 sqM) Est GFR (CKD-EPI)NonAf 69 (>60 ml/min/1.73 sqM) Glucose 119 H (74-99) mg/dL Calcium 9.5 (8.4-10.2) mg/dL Total Bilirubin 0.9 (0.2-1.3) mg/dL AST 51 H (14-36) U/L ALT 32 (9-52) U/L Alkaline Phosphatase 109 (38-126) U/L Total Protein 8.7 H (6.3-8.2) g/dL Albumin 4.8 (3.5-5.0) g/dL Urine Color Urine Appearance (Clear) Urine pH (5.0-8.0) Ur Specific [place] (1.001-1.035) Urine Protein (Negative) Urine Glucose (UA) (Negative) Urine Ketones (Negative) Urine Blood (Negative) Urine Nitrite (Negative) Urine Bilirubin (Negative) Urine Urobilinogen (<2.0) mg/dL Ur Leukocyte Esterase (Negative) Urine RBC (0-5) /hpf Urine WBC (0-5) /hpf Ur Squamous Epith Cells (0-4) /hpf Urine Mucus (None) /hpf 10/16/17 Range/Units 19:15 WBC (3.8-10.6) k/uL RBC (3.80-5.40) m/uL Hgb (11.4-16.0) gm/dL Hct (34.0-46.0) % MCV (80.0-100.0) fL MCH (25.0-35.0) pg MCHC (31.0-37.0) g/dL RDW (11.5-15.5) % Plt Count (150-450) k/uL Neutrophils % % Lymphocytes % % Monocytes % % Eosinophils % % Basophils % % Neutrophils # (1.3-7.7) k/uL Lymphocytes # (1.0-4.8) k/uL Monocytes # (0-1.0) k/uL Eosinophils # (0-0.7) k/uL Basophils # (0-0.2) k/uL Sodium (137-145) mmol/L Potassium (3.5-5.1) mmol/L Chloride (98-107) mmol/L Carbon Dioxide (22-30) mmol/L Anion Gap mmol/L BUN (7-17) mg/dL Creatinine (0.52-1.04) mg/dL Est GFR (CKD-EPI)AfAm (>60 ml/min/1.73 sqM) Est GFR (CKD-EPI)NonAf (>60 ml/min/1.73 sqM) Glucose (74-99) mg/dL Calcium (8.4-10.2) mg/dL Total Bilirubin (0.2-1.3) mg/dL AST (14-36) U/L ALT (9-52) U/L Alkaline Phosphatase (38-126) U/L Total Protein (6.3-8.2) g/dL Albumin (3.5-5.0) g/dL Urine Color Yellow Urine Appearance Clear (Clear) Urine pH 5.5 (5.0-8.0) Ur Specific [place] 1.033 (1.001-1.035) Urine Protein 1+ H (Negative) Urine Glucose (UA) Negative (Negative) Urine Ketones Trace H (Negative) Urine Blood Moderate H (Negative) Urine Nitrite Negative (Negative) Urine Bilirubin Negative (Negative) Urine Urobilinogen 2.0 (<2.0) mg/dL Ur Leukocyte Esterase Moderate H (Negative) Urine RBC 23 H (0-5) /hpf Urine WBC 6 H (0-5) /hpf Ur Squamous Epith Cells 2 (0-4) /hpf Urine Mucus Few H (None) /hpf Disposition Clinical Impression: Kidney stone Disposition: HOME SELF-CARE Condition: Good Prescriptions: Ketorolac [Toradol] 10 mg PO Q6HR #15 tab Ondansetron Odt [Zofran Odt] 4 mg PO Q8HR PRN #10 tab PRN Reason: Pain Tamsulosin [Flomax] 0.4 mg PO DAILY #7 cap Is patient prescribed a controlled substance at d/c from ED?: No Referrals: Rizwana Goncalves DO [Primary Care Provider] - 1-2 days Time of Disposition: 19:42
[2017-10-16 17:25] LABS: Basophils % (A) 0 %; Eosinophils # (A) 0.1 k/uL (0-0.7); Eosinophils % (A) 1 %; HCT 44.2 % (34.0-46.0); HGB 14.6 gm/dL (11.4-16.0); Lymphocytes # (A) 0.8 k/uL (1.0-4.8); Lymphocytes % (A) 7 %; MCH 30.8 pg (25.0-35.0); MCHC 33.1 g/dL (31.0-37.0); MCV 93.1 fL (80.0-100.0); Mean Platelet Volume 7.4; Monocytes # (A) 0.2 k/uL (0-1.0); Monocytes % (A) 2 %; Neutrophils # (A) 10.3 k/uL (1.3-7.7); Neutrophils % (A) 90 %; Platelet Count 319 k/uL (150-450); RBC 4.74 m/uL (3.80-5.40); RDW 13.6 % (11.5-15.5); WBC 11.6 k/uL (3.8-10.6)
[2017-10-16 17:38] LABS: Albumin 4.8 g/dL (3.5-5.0); Calcium 9.5 mg/dL (8.4-10.2); Total Bilirubin 0.9 mg/dL (0.2-1.3); Total Protein 8.7 g/dL (6.3-8.2)
[2017-10-16 17:42] LABS: Potassium 6.1 mmol/L (3.5-5.1)
--- NOTE | 2017-10-16 17:57 | XR ---
Abdomen HISTORY: Abdomen pain Frontal view of the abdomen submitted on 2 images and correlated to prior exam 04/23/2016, CT abdomen p glendy 09/30/2017 There is a scoliosis. Degenerative disc changes are present in the visualized spine. Postop change no per to the right upper quadrant, post procedural change within the heart. Lung bases are clear. A non obstructive calculus seen on previous CT scan is not well seen on plain film likely due to small size . No evident bowel obstruction or pneumoperitoneum. IMPRESSION: Nonobstructive bowel gas pattern.
[2017-10-16 19:34] LABS: Appearance,Urine Clear (Clear); Bilirubin,Urine Negative (Negative); Blood,Urine Moderate (Negative); Color,Urine Yellow; Glucose,Urine (UA) Negative (Negative); Ketones,Urine Trace (Negative); Leukocyte Esterase,Urine Moderate (Negative); Mucus,Urine Few /hpf; Nitrite,Urine Negative (Negative); PH, Urine 5.5 (5.0-8.0); Protein,Urine 1+ (Negative); RBC,Urine 23 /hpf (0-5); Specific Gravity,Urine 1.033 (1.001-1.035); Squamous Epithelial Cell,Urine 2 /hpf (0-4); WBC,Urine 6 /hpf (0-5)
[2017-10-16] MEDS ORDERED: ONDANSETRON 4 MG ODT STARTER PACK 2 TAB BTL PO STA (19:50)
[2017-10-16 20:01] VITALS: BP 124/67; TEMP 98.3
== END 2017-10-16 20:00 | disposition home or self-care (01) ==
LOC: EC 16:18
DX: N20.0 Calculus of kidney (principal); Z79.82 Long term (current) use of aspirin; Z79.899 Other long term (current) drug therapy; Z88.2 Allergy status to sulfonamides; Z91.040 Latex allergy status; Z90.49 Acquired absence of other specified parts of digestive tract; Z98.890 Other specified postprocedural states; Z80.0 Family history of malignant neoplasm of digestive organs
CPT/HCPCS: 36415; 80053; 84132; 85025; 81001; 74018; 99284; 96374; 96375 ×2; 96361; J2405; J1885; S0119; J1170

== ENCOUNTER → 2017-11-11 | Outpatient (CLI) | payer OTHER ==
[2017-11-11 14:41] LABS: Basophils % (A) 0 %; Eosinophils # (A) 0.2 k/uL (0-0.7); Eosinophils % (A) 3 %; HCT 42.6 % (34.0-46.0); HGB 13.6 gm/dL (11.4-16.0); Lymphocytes # (A) 1.9 k/uL (1.0-4.8); Lymphocytes % (A) 27 %; MCH 29.4 pg (25.0-35.0); MCHC 31.8 g/dL (31.0-37.0); MCV 92.2 fL (80.0-100.0); Mean Platelet Volume 7.3; Monocytes # (A) 0.3 k/uL (0-1.0); Monocytes % (A) 4 %; Neutrophils # (A) 4.5 k/uL (1.3-7.7); Neutrophils % (A) 64 %; Platelet Count 307 k/uL (150-450); RBC 4.62 m/uL (3.80-5.40)
[2017-11-11 15:00] LABS: Calcium 9.7 mg/dL (8.4-10.2); Potassium 4.4 mmol/L (3.5-5.1)
== END | disposition home or self-care (01) ==
LOC: LABPAT 13:52
PROVIDERS: ATTEND Urology
DX: Z01.812 Encounter for preprocedural laboratory examination (principal); N20.0 Calculus of kidney; R35.0 Frequency of micturition; R31.29 Other microscopic hematuria
CPT/HCPCS: 36415; 80048; 85025; 87086

== ENCOUNTER 2017-11-18 08:55 | Day surgery (SDC) | payer OTHER ==
[2017-11-15 12:56] VITALS: BMI 34.3
--- NOTE | 2017-11-17 06:34 | P.GSHP ---
History of Present Illness H&P Date: 11/13/17 Chief Complaint: Left flank pain The patient is a 61-year-old white female with a history of urolithiasis. She underwent ureteroscopic removal of 2 right renal calculi in 2017. She now presents back with left flank pain, which is intermittent but severe at times. A computed tomography scan has shown a 3 mm left upper pole renal calculus. She was offered the options of ESWL versus ureteroscopy and has chosen to undergo the latter. 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 History of Any Multi-Drug Resistant Organisms: None Reported Past Surgical History: Cholecystectomy Additional Past Surgical History / Comment(s): CYST ON FINGER, BUNIONECTOMY, SINUS SURGERY, CYSTO WITH URETEROSCOPY FOR STONE REMOVAL (05/08/16); percutanous closure of PFO with occluder device 08/07/16 Past Anesthesia/Blood Transfusion Reactions: No Reported Reaction Past Psychological History: No Psychological Hx Reported Smoking Status: Never smoker Past Alcohol Use History: None Reported Past Drug Use History: None Reported - Past Family History Mother Family Medical History: Cancer Additional Family Medical History / Comment(s): COLON CANCER Brother(s) Additional Family Medical History / Comment(s): HOLE IN HIS HEART. Medications and Allergies Home Medications Medication Instructions Recorded Confirmed Type Aspirin EC [Ecotrin Low Dose] 324 mg PO DAILY 06/07/17 11/15/17 History Multivitamins, Thera [Multivitamin 1 tab PO DAILY 06/07/17 11/15/17 History (formulary)] HYDROcodone/APAP 5-325MG [[place] 1 - 2 tab PO Q6HR PRN 11/15/17 11/15/17 History 5-325] Pravastatin Sodium [Pravachol] 10 mg PO HS 11/15/17 11/15/17 History Allergies Allergy/AdvReac Type Severity Reaction Status Date / Time latex Allergy Rash/Hives Verified 11/15/17 12:49 sulfamethoxazole Allergy Rash/Hives Verified 11/15/17 12:49 [From Bactrim] trimethoprim [From Bactrim] Allergy Rash/Hives Verified 11/15/17 12:49 Surgical - Exam - General well developed, well nourished, no distress - Neck no masses, trachea midline - Respiratory normal respiratory effort - Psychiatric oriented to time, oriented to person, oriented to place, speech is normal, memory intact Assessment and Plan (1) Calculus of kidney Status: Acute Code(s): N20.0 - CALCULUS OF KIDNEY SNOMED Code(s): 52648973 Plan: Cystoscopy, left ureteroscopy with holmium laser lithotripsy, left ureteral stent insertion. The procedure was reviewed in detail with the patient. Potential risks include anesthesia, bleeding, infection, and ureteral injury. She understands the possibility that the calculus cannot be successfully removed , and the possibility that her left flank pain will persist despite successful removal of the calculus.
[~2017-11-18 08:55] MED LIST changes: +DEXAMETHASONE SOD PHOSPHATE 10 MG/ML 1 ML VIAL IV ONE; +HYDROmorphone 0.5 MG/0.5 ML SYRINGE IVP PRN; -LIDOCAINE 1% 20 ML VIAL (10MG/ML) FOR IV START INTRADERMA PRN; +ONDANSETRON 4 MG/2 ML VIAL IVP ONE; +ceFAZolin 1,000 MG in DEXTROSE/WATER 1 50ML.BAG IV ONE
[2017-11-18 09:47] VITALS: RESP 16
--- NOTE | 2017-11-18 09:53 | XR ---
EXAMINATION TYPE: XR KUB DATE OF EXAM: 11/18/2017 COMPARISON: 10/16/2017 INDICATION: Renal stones TECHNIQUE: Single view abdomen frontal projection FINDINGS: There is a normal bowel gas pattern. Psoas margins are normal. No organomegaly is present. No suspicious calcifications are identified. Cholecystectomy clips are in the right upper quadrant. S coliosis within the lumbar spine. IMPRESSION: 1. Unremarkable Abdomen
[2017-11-18] MEDS ORDERED: LIDOCAINE 1% 20 ML VIAL (10MG/ML) FOR IV START INTRADERMA ONE (10:04)
[2017-11-18] MEDS ORDERED: SUCCINYLCHOLINE CHLORIDE 100 MG/5 ML SYR IV ONE (11:33)
[2017-11-18] MEDS ORDERED: ePHEDrine SULFATE/0.9% NACL/PF 50 MG/5 ML SYRINGE IV ONE (11:33)
[2017-11-18] MEDS ORDERED: KETOROLAC 30 MG/ML 1 ML VIAL ONE (11:33)
[2017-11-18] MEDS ORDERED: PROPOFOL 10 MG/ML 20 ML VIAL IV ONE (11:33)
[2017-11-18] MEDS ORDERED: LIDOCAINE 1% INJ 10MG/ML (20 ML MDV) ONE (11:33)
[2017-11-18] MEDS ORDERED: fentaNYL (PF) 50 MCG/ML 2 ML AMP ONE (11:33)
[2017-11-18] MEDS ORDERED: MIDAZOLAM 2 MG/2 ML VIAL ONE (11:33)
--- NOTE | 2017-11-18 12:41 | P.OP ---
Date of Procedure: 11/18/17 Preoperative Diagnosis: Left Renal Calculus Postoperative Diagnosis: Same Procedure(s) Performed: Cystoscopy, left ureteroscopy with Holmium laser lithotripsy and stone basketing , left ureteral stent insertion Anesthesia: SHAY Surgeon: Jeffrey Agarwal Estimated Blood Loss (ml): 10 IV fluids (ml): 400 Pathology: none sent Condition: stable Disposition: PACU Indications for Procedure: The patient is a 61-year-old white female with a history of urolithiasis. She underwent ureteroscopic removal of 2 right renal calculi in 2017. She now presents back with left flank pain, which is intermittent but severe at times. A computed tomography scan has shown a 3 mm left upper pole renal calculus. She was offered the options of ESWL versus ureteroscopy and has chosen to undergo the latter. Operative Findings: 3 upper pole Chinedu plaques are seen. Description of Procedure: The patient was taken to the operating room and placed in the dorsolithotomy position, with legs supported in Robert stirrups. The external genitalia was prepped and draped sterilely. The 30 lens was used to introduce the 22-Mold[place] Stortz cystoscopic sheath through the urethra and into the bladder under direct vision. The bladder was examined in its entirety. Both ureteral orifices were normal anatomic location and configuration, and clear urine effluxed from both. No tumors or foreign bodies were seen. A 0.038 inch Glidewire was passed through the cystoscope. The left ureteral orifice was cannulated, and the Glidewire was slowly advanced up to the left renal pelvis. An 11/13-[place] ureteral access catheter was passed over the wire , up to the proximal ureter. The Olympus mini flexible ureteroscope was advanced through the ureteral access catheter sheath. It was advanced under direct vision into the left renal pelvis. Each calyx was examined. A bifid renal pelvis was noted. The upper half of this bifid renal pelvis drained both the upper pole and midpole calyces. Each calyx was carefully examined. No calculi were seen. 3 Chinedu plaques were noted within the upper pole calyces. The 200 micron Holmium laser probe was passed through the ureteroscope, and each of the Chinedu plaques were fragmented. The largest was removed via stone basketing, but measured only 1-2 mm in size. The ureteroscope was slowly removed under direct vision. No ureteral calculi were seen. The cystoscope was replaced into the bladder, and the Glidewire was passed up to the left renal pelvis. A 24 cm, 4.8-Moldovan double-J ureteral stent was placed over the wire. Proper stent positioning was verified fluoroscopically and endoscopically. The bladder was emptied and the cystoscope removed. The patient tolerated the procedure well and was taken to the recovery room in stable condition.
[2017-11-18 12:47] VITALS: TEMP 97
--- NOTE | 2017-11-18 12:48 | FL ---
Fluoroscopy INDICATION: Pain FINDINGS: Fluoroscopy time: 18 seconds. Images obtained: 1. IMPRESSIONS: 1. Documentation of fluoroscopy.
[2017-11-18 13:45] VITALS: PULSE 85
[2017-11-18 14:15] VITALS: BP 116/74
== END 2017-11-18 14:53 | disposition home or self-care (01) ==
LOC: OR 08:55
PROVIDERS: ATTEND Urology
DX: N20.0 Calculus of kidney (principal); Z87.442 Personal history of urinary calculi; Z88.2 Allergy status to sulfonamides; Z79.82 Long term (current) use of aspirin; Z79.899 Other long term (current) drug therapy; Z86.73 Personal history of transient ischemic attack (TIA), and cerebral infarction without residual deficits; E66.9 Obesity, unspecified; Z88.0 Allergy status to penicillin; Z91.040 Latex allergy status; Z68.34 Body mass index [BMI] 34.0-34.9, adult
CPT/HCPCS: 74018; 52356; C2625; C1769; C1894; J2250; J1100; J2405; J2001; J3010; J1885; J0690; J0330; J2704

== ENCOUNTER → 2018-01-12 | Outpatient (CLI) | payer OTHER ==
--- NOTE | 2018-01-12 19:56 | US ---
EXAMINATION TYPE: US kidneys/renal and bladder DATE OF EXAM: 01/12/2018 COMPARISON: CT 09/30/2017 and 05/03/2016 CLINICAL HISTORY: 62-year-old female N20.0 CALCULUS OF KIDNEYS. Left flank pain, history of kidney st ones TECHNIQUE: Multiple sonographic images of the kidneys and bladder are obtained. FINDINGS: EXAM MEASUREMENTS: Right Kidney: 11.2 x 4.8 x 5.6 cm Left Kidney: 11.2 x 4.6 x 4.5 cm Hr Administrative Assistant notes:Difficult and limited study due to patient body habitus Right Kidney: 0.4cm echogenic focus superior pole. No hydronephrosis. Left Kidney: bilobed exophytic 5.2 x 4.5 x 3.7cm cyst mid pole. On 05/03/2016, this measured up to 5.0 x 3.5 x 3.3 cm. On 09/30/2017, this measured up to 5.2 x 3.9 x 3.6 cm. Presently, one of the cystic co mponents measuring up to 4.0 cm is hypoechoic suggesting internal debris. 4 mm echogenic focus superi or all. There is no hydronephrosis. Bladder: not fully distended, appears wnl as seen Bilateral Jets seen: no IMPRESSION: 1. No hydronephrosis. 2. Bilobed exophytic cyst measuring up to 5.2 x 4.5 cm in the left kidney versus 5.2 x 2.9 cm on 2017. On 05/03/2016, this measured up to 5.0 x 3.5 cm. Despite one of the cystic components now being hypoechoic, the indolent behavior suggests a benign etiology. A debris-filled cyst is suggested. A 6 month follow-up renal ultrasound can be considered. 3. Small nonobstructive renal calculi measuring up to 4 mm.
== END | disposition home or self-care (01) ==
LOC: RADUSWWP 14:45
PROVIDERS: ATTEND Urology
DX: N20.0 Calculus of kidney (principal)
CPT/HCPCS: 76770

== ENCOUNTER → 2019-02-20 | Outpatient (CLI) | payer OTHER ==
--- NOTE | 2019-02-20 23:26 | CT ---
EXAMINATION TYPE: CT abdomen w con DATE OF EXAM: 02/20/2019 HISTORY: Left lower quadrant pain. CT DLP: 1533mGycm Automated Exposure Control for Dose Reduction was Utilized. CONTRAST: CT scan of the abdomen is performed with oral and with IV Contrast, patient injected with 100 mL of I sovue 300. COMPARISON: CT abdomen and pelvis September 30, 2017 FINDINGS: LUNG BASES: Aortic septal defect closure device redemonstrated. LIVER/GB: Cholecystectomy clips again seen.. PANCREAS: No significant abnormality is seen. SPLEEN: No significant abnormality is seen. ADRENALS: No significant abnormality is seen. KIDNEYS: Persistent 2 mm nonobstructing calculus left kidney upper midpole level coronal image 64. Th ere are a few simple appearing thin-walled cysts laterally left kidney. Symmetric cortical especially uptake and excretion without hydronephrosis seen bilaterally. Subcentimeter cysts are present [facility] upper pole right kidney axial image 29 series 5. BOWEL: No significant abnormality is seen. LYMPH NODES: No greater than 1cm abdominal lymph nodes are appreciated. OSSEOUS STRUCTURES: Slight scoliotic curvature with moderate to severe multilevel spurring and disc s pace narrowing and multilevel vacuum disc phenomenon. Limbus vertebra anterior superior L4 endplate. OTHER: No significant additional abnormality is seen. IMPRESSION: No significant new or acute finding is seen to account for patient's clinical symptoms of left lower quadrant pain.
== END | disposition home or self-care (01) ==
LOC: RADCTMAIN 15:52
PROVIDERS: ATTEND Family Medicine
DX: R10.32 Left lower quadrant pain (principal)
CPT/HCPCS: 74160; Q9967

== ENCOUNTER 2021-06-26 10:11 | Observation (INO) | payer MEDICARE, OTHER ==
[2021-06-26] MEDS ORDERED: ONDANSETRON 4 MG/2 ML VIAL IVP STA ×2 (11:35→15:45)
[2021-06-26] MEDS ORDERED: MORPHINE SULFATE 4 MG/ML SYRINGE IV STA (11:35)
--- NOTE | 2021-06-26 12:30 | ED ---
Abdominal Pain HPI - General Chief Complaint: Abdominal Pain Stated Complaint: Abd Pain Time Seen by Provider: 06/26/21 11:22 Source: patient Mode of arrival: ambulatory Limitations: no limitations - History of Present Illness Initial Comments: Patient is a 65-year-old female who presents to the emergency department with a chief complaint of right lower abdominal pain and nausea. Patient states symptoms started 3 days ago and have been consistent. Pain is localized in the right lower quadrant. The pain has not gotten any better or worse. She has not taken anything for pain. Patient endorses nausea with no episodes of vomiting. She admits to intermittent chills. Denies upper respiratory symptoms, shortness of breath, chest pain, back pain, side pain, burning with urination, blood in the urine. Patient has history of cholecystectomy and kidney stones. She still has her appendix. - Related Data Home Medications Medication Instructions Recorded Confirmed Aspirin EC [Ecotrin Low Dose] 81 mg PO DAILY 06/26/21 06/26/21 Pravastatin Sodium [Pravachol] 20 mg PO HS 06/26/21 06/26/21 Allergies Allergy/AdvReac Type Severity Reaction Status Date / Time latex Allergy Rash/Hives Verified 06/26/21 12:42 sulfamethoxazole Allergy Rash/Hives Verified 06/26/21 12:42 [From Bactrim] trimethoprim [From Bactrim] Allergy Rash/Hives Verified 06/26/21 12:42 Review of Systems ROS Statement: Those systems with pertinent positive or pertinent negative responses have been documented in the HPI. ROS Other: All systems not noted in ROS Statement are negative. 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 History of Any Multi-Drug Resistant Organisms: None Reported Past Surgical History: Cholecystectomy Additional Past Surgical History / Comment(s): CYST ON FINGER, BUNIONECTOMY, SINUS SURGERY, CYSTO WITH URETEROSCOPY FOR STONE REMOVAL (05/08/16); percutanous closure of PFO with occluder device 08/07/16 Past Anesthesia/Blood Transfusion Reactions: No Reported Reaction Past Psychological History: No Psychological Hx Reported Smoking Status: Never smoker Past Alcohol Use History: None Reported Past Drug Use History: None Reported - Past Family History Mother Family Medical History: Cancer Additional Family Medical History / Comment(s): COLON CANCER Brother(s) Additional Family Medical History / Comment(s): HOLE IN HIS HEART. General Exam Limitations: no limitations General appearance: alert, in no apparent distress Head exam: Present: atraumatic, normocephalic, normal inspection Eye exam: Present: normal appearance, PERRL, EOMI. Absent: scleral icterus, conjunctival injection, periorbital swelling Neck exam: Present: normal inspection Respiratory exam: Present: normal lung sounds bilaterally. Absent: respiratory distress, wheezes, rales, rhonchi, stridor Cardiovascular Exam: Present: regular rate, normal rhythm, normal heart sounds. Absent: systolic murmur, diastolic murmur, rubs, gallop, clicks GI/Abdominal exam: Present: soft, tenderness (Mild right lower quadrant), normal bowel sounds. Absent: distended, guarding, rebound, rigid Back exam: Present: normal inspection, full ROM. Absent: CVA tenderness (R), paraspinal tenderness, vertebral tenderness Neurological exam: Present: alert, oriented X3, CN II-XII intact Psychiatric exam: Present: normal affect, normal mood Skin exam: Present: warm, dry, intact, normal color. Absent: rash Course Vital Signs 06/26/21 06/26/21 06/26/21 10:29 12:34 14:10 Temperature 98 F Pulse Rate 70 72 64 Respiratory 16 18 18 Rate Blood Pressure 155/82 170/95 148/84 O2 Sat by Pulse 97 95 97 Oximetry 06/26/21 16:26 Temperature Pulse Rate 68 Respiratory 18 Rate Blood Pressure 143/78 O2 Sat by Pulse 98 Oximetry Medical Decision Making - Medical Decision Making This is a 65-year-old female who presents emergency department with right lower quadrant pain and nausea for 3 days. Thorough history and examination were performed. Patient is well-appearing and in no apparent distress. Has history of cholecystectomy and kidney stones. There is mild right lower quadrant abdominal tenderness. No CVA tenderness, vomiting, burning with urination, or blood in the urine. She is afebrile but reports intermittent chills for the past 3 days. There is suspicion for appendicitis and kidney stone. Laboratory studies and CT will be obtained. Pain and nausea controlled with morphine and Zofran. = Patient has mildly elevated white count at 11.6. She has a mild acute kidney injury with creatinine at 1.40. Fluid bolus was initiated. Urinalysis reveals [address] of the abdomen and pelvis shows 2 right UVJ calculi measuring 3.5 and 2.5 mm respectively with mild to moderate resultant right-sided hydronephro sis. Results discussed with patient. There are no signs of significant infection. There are no signs of significant acute kidney injury or dehydration. Patient does have mild to moderate hydronephrosis but her kidney stones are small and with their location are likely to pass without procedural measures. With patient's pain controlled the initial plan was to send patient home for outpatient management however upon discharge patient had multiple episodes of vomiting with inability to tolerate food or liquid. Patient seeks admission. Case discussed with Dr. Hernandez. Patient will be admitted to his service for observation and pain control. Flomax was ordered however patient is hesitant to take the medication due to consistent vomiting however states her nausea is minimal now. Dr. Belle is my attending. - Lab Data Result diagrams: 06/26/21 12:20 06/26/21 14:15 Lab Results 06/26/21 06/26/21 06/26/21 Range/Units 12:20 12:34 14:15 WBC 11.6 H (3.8-10.6) k/uL RBC 4.46 (3.80-5.40) m/uL Hgb 13.5 (11.4-16.0) gm/dL Hct 43.1 (34.0-46.0) % MCV 96.6 (80.0-100.0) fL MCH 30.2 (25.0-35.0) pg MCHC 31.3 (31.0-37.0) g/dL RDW 13.5 (11.5-15.5) % Plt Count 314 (150-450) k/uL MPV 8.2 Neutrophils % 85 % Lymphocytes % 10 % Monocytes % 4 % Eosinophils % 1 % Basophils % 0 % Neutrophils # 9.8 H (1.3-7.7) k/uL Lymphocytes # 1.1 (1.0-4.8) k/uL Monocytes # 0.5 (0-1.0) k/uL Eosinophils # 0.1 (0-0.7) k/uL Basophils # 0.0 (0-0.2) k/uL Sodium 140 (137-145) mmol/L Potassium 4.6 (3.5-5.1) mmol/L Chloride 109 H (98-107) mmol/L Carbon Dioxide 24 (22-30) mmol/L Anion Gap 7 mmol/L BUN 24 H (7-17) mg/dL Creatinine 1.40 H (0.52-1.04) mg/dL Est GFR (CKD-EPI)AfAm 45 (>60 ml/min/1.73 sqM) Est GFR (CKD-EPI)NonAf 39 (>60 ml/min/1.73 sqM) Glucose 103 H (74-99) mg/dL Calcium 9.2 (8.4-10.2) mg/dL Total Bilirubin 0.7 (0.2-1.3) mg/dL AST 27 (14-36) U/L ALT 17 (4-34) U/L Alkaline Phosphatase 89 (38-126) U/L Total Protein 7.1 (6.3-8.2) g/dL Albumin 4.1 (3.5-5.0) g/dL Lipase 239 (23-300) U/L Urine Color Urine Appearance (Clear) Urine pH (5.0-8.0) Ur Specific [place] (1.001-1.035) Urine Protein (Negative) Urine Glucose (UA) (Negative) Urine Ketones (Negative) Urine Blood (Negative) Urine Nitrite (Negative) Urine Bilirubin (Negative) Urine Urobilinogen (<2.0) mg/dL Ur Leukocyte Esterase (Negative) Urine RBC (0-5) /hpf Urine WBC (0-5) /hpf Urine Mucus (None) /hpf Influenza Type A (PCR) Not Detected (Not Detectd) Influenza Type B (PCR) Not Detected (Not Detectd) RSV (PCR) Not Detected (Not Detectd) SARS-CoV-2 (PCR) Not Detected (Not Detectd) 06/26/21 Range/Units 15:13 WBC (3.8-10.6) k/uL RBC (3.80-5.40) m/uL Hgb (11.4-16.0) gm/dL Hct (34.0-46.0) % MCV (80.0-100.0) fL MCH (25.0-35.0) pg MCHC (31.0-37.0) g/dL RDW (11.5-15.5) % Plt Count (150-450) k/uL MPV Neutrophils % % Lymphocytes % % Monocytes % % Eosinophils % % Basophils % % Neutrophils # (1.3-7.7) k/uL Lymphocytes # (1.0-4.8) k/uL Monocytes # (0-1.0) k/uL Eosinophils # (0-0.7) k/uL Basophils # (0-0.2) k/uL Sodium (137-145) mmol/L Potassium (3.5-5.1) mmol/L Chloride (98-107) mmol/L Carbon Dioxide (22-30) mmol/L Anion Gap mmol/L BUN (7-17) mg/dL Creatinine (0.52-1.04) mg/dL Est GFR (CKD-EPI)AfAm (>60 ml/min/1.73 sqM) Est GFR (CKD-EPI)NonAf (>60 ml/min/1.73 sqM) Glucose (74-99) mg/dL Calcium (8.4-10.2) mg/dL Total Bilirubin (0.2-1.3) mg/dL AST (14-36) U/L ALT (4-34) U/L Alkaline Phosphatase (38-126) U/L Total Protein (6.3-8.2) g/dL Albumin (3.5-5.0) g/dL Lipase (23-300) U/L Urine Color Yellow Urine Appearance Clear (Clear) Urine pH 5.0 (5.0-8.0) Ur Specific [place] 1.027 (1.001-1.035) Urine Protein Negative (Negative) Urine Glucose (UA) Negative (Negative) Urine Ketones Trace H (Negative) Urine Blood Small H (Negative) Urine Nitrite Negative (Negative) Urine Bilirubin Negative (Negative) Urine Urobilinogen <2.0 (<2.0) mg/dL Ur Leukocyte Esterase Negative (Negative) Urine RBC 12 H (0-5) /hpf Urine WBC 1 (0-5) /hpf Urine Mucus Rare H (None) /hpf Influenza Type A (PCR) (Not Detectd) Influenza Type B (PCR) (Not Detectd) RSV (PCR) (Not Detectd) SARS-CoV-2 (PCR) (Not Detectd) Disposition Clinical Impression: Kidney stones Disposition: ADMITTED IP TO THIS [facility] Condition: Good Referrals: Rizwana Goncalves DO [Primary Care Provider] - 1-2 days Decision Time: 18:07
[2021-06-26 12:57] LABS: Basophils % (A) 0 %; Eosinophils # (A) 0.1 k/uL (0-0.7); Eosinophils % (A) 1 %; HCT 43.1 % (34.0-46.0); HGB 13.5 gm/dL (11.4-16.0); Lymphocytes # (A) 1.1 k/uL (1.0-4.8); Lymphocytes % (A) 10 %; MCH 30.2 pg (25.0-35.0); MCHC 31.3 g/dL (31.0-37.0); MCV 96.6 fL (80.0-100.0); Mean Platelet Volume 8.2; Monocytes # (A) 0.5 k/uL (0-1.0); Monocytes % (A) 4 %; Neutrophils # (A) 9.8 k/uL (1.3-7.7); Neutrophils % (A) 85 %; Platelet Count 314 k/uL (150-450); RBC 4.46 m/uL (3.80-5.40); RDW 13.5 % (11.5-15.5); WBC 11.6 k/uL (3.8-10.6)
[2021-06-26 14:29] LABS: Albumin 4.1 g/dL (3.5-5.0); Calcium 9.2 mg/dL (8.4-10.2); Potassium 4.6 mmol/L (3.5-5.1); Total Bilirubin 0.7 mg/dL (0.2-1.3); Total Protein 7.1 g/dL (6.3-8.2)
[2021-06-26] MEDS ORDERED: SODIUM CHLORIDE 0.9% 2,000 ML IV STA (14:30)
--- NOTE | 2021-06-26 15:06 | CT ---
EXAMINATION TYPE: CT abdomen pelvis wo con DATE OF EXAM: 06/26/2021 COMPARISON: 02/20/2019 HISTORY: RLQ pain CT DLP: 1269.4 mGycm Examination of the solid and hollow viscera is limited given the lack of contrast. FINDINGS: LUNG BASES: No evidence for nodule. No evidence for infiltrate. LIVER/GB: The gallbladder is surgically absent.. No space-occupying hepatic lesion. PANCREAS: No pancreatic mass identified. No inflammatory process seen. SPLEEN: No evidence for splenomegaly. No intrasplenic lesions seen. ADRENALS: No adrenal nodules identified. No evidence for thickening. KIDNEYS: 2 right UVJ calculi are noted measuring 3.5 mm and 2.5 mm respectively. There is mild to mod erate resultant right-sided hydronephrosis. Mild right renal edema suggested. 2 mm nonobstructing preston culus lower pole right kidney. 2 mm nonobstructing calculi lower pole left kidney. 3 mm nonobstructin g calculus upper pole left kidney. Bilobed hypoattenuating mass left kidney are likely reflects a cys t. Lack of contrast is limiting. BOWEL: Appendix has a normal appearance. No evidence of bowel obstruction. No inflammatory process. Lymph nodes: No evidence for adenopathy greater than 1 cm. Abdominal aorta: Atheromatous changes seen. No evidence for aneurysm. Genital organs: No significant abnormality. Other: No significant abnormality. IMPRESSION: 2 right UVJ calculi are noted measuring 3.5 mm and 2.5 mm respectively. There is mild to moderate res ultant right-sided hydronephrosis. Mild right renal edema suggested.
[2021-06-26 15:27] LABS: Appearance,Urine Clear (Clear); Bilirubin,Urine Negative (Negative); Blood,Urine Small (Negative); Color,Urine Yellow; Glucose,Urine (UA) Negative (Negative); Ketones,Urine Trace (Negative); Leukocyte Esterase,Urine Negative (Negative); Mucus,Urine Rare /hpf; Nitrite,Urine Negative (Negative); Protein,Urine Negative (Negative); RBC,Urine 12 /hpf (0-5); Specific Gravity,Urine 1.027 (1.001-1.035); Urobilinogen,Urine <2.0 mg/dL (<2.0); WBC,Urine 1 /hpf (0-5)
[2021-06-26] MEDS ORDERED: MORPHINE SULFATE 4 MG/ML SYRINGE IVP STA (15:45)
[2021-06-26] MEDS ORDERED: TAMSULOSIN 0.4 MG CAP.ER.24H PO STA (16:01)
[2021-06-26] MEDS ORDERED: ONDANSETRON 4 MG/2 ML VIAL IVP PRN ×2 (16:58→18:24)
[2021-06-26] MEDS ORDERED: NALOXONE 0.4 MG/ML 1 ML VIAL IV PRN ×2 (16:58→18:24)
[2021-06-26] MEDS ORDERED: KETOROLAC 15 MG/ML 1 ML VIAL IVP STA (17:48)
[2021-06-26] MEDS: SODIUM CHLORIDE 0.9% 1,000 ML IV SCH (18:21)
[2021-06-26] MEDS ORDERED: HYDROcodone/APAP 5-325MG 1 EACH TAB PO PRN (18:24)
[2021-06-26] MEDS ORDERED: KETOROLAC 15 MG/ML 1 ML VIAL IVP PRN (18:24)
[2021-06-26] MEDS ORDERED: ACETAMINOPHEN TAB 325 MG TAB PO PRN (18:24)
[2021-06-26] MEDS ORDERED: MAGNESIUM HYDROXIDE 2,400 MG/10 ML CUP PO PRN (18:24)
[2021-06-26] MEDS ORDERED: MORPHINE SULFATE 4 MG/ML SYRINGE IVP PRN (18:24)
[2021-06-26] MEDS ORDERED: DOCUSATE 100 MG CAP PO PRN (18:24)
[2021-06-26] MEDS ORDERED: TRIMETHOBENZAMIDE 100 MG/ML 2 ML VIAL IM PRN (18:54)
--- NOTE | 2021-06-26 19:00 | P.HPIM ---
History of Present Illness H&P Date: 06/26/21 Chief Complaint: Right flank pain with nausea and vomiting Patient is a 65-year-old female this past medical history of acute CVA in 2017 secondary to patent foramen ovale status post repair by Dr. Ellis. The patient presents to the emergency department with a chief complaint of right flank abdominal pain with nausea and vomiting 3 days na. Patient states symptoms started 3 days ago and have been consistent. Pain is localized in the right lower quadrant. The pain has not gotten any better or worse. She has not taken anything for pain. Patient endorses nausea with no episodes of vomiting. She admits to intermittent chills. Denies upper respiratory symptoms, shortness of breath, chest pain, back pain, side pain, burning with urination, blood in the urine. Patient has history of cholecystectomy and kidney stones. She still has her appendix. Review of Systems All 14 review of systems evaluated and all negative except for above. 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 History of Any Multi-Drug Resistant Organisms: None Reported Past Surgical History: Cholecystectomy Additional Past Surgical History / Comment(s): CYST ON FINGER, BUNIONECTOMY, SINUS SURGERY, CYSTO WITH URETEROSCOPY FOR STONE REMOVAL (05/08/16); percutanous closure of PFO with occluder device 08/07/16 Past Anesthesia/Blood Transfusion Reactions: No Reported Reaction Past Psychological History: No Psychological Hx Reported Smoking Status: Never smoker Past Alcohol Use History: None Reported Past Drug Use History: None Reported - Past Family History Mother Family Medical History: Cancer Additional Family Medical History / Comment(s): COLON CANCER Brother(s) Additional Family Medical History / Comment(s): HOLE IN HIS HEART. Medications and Allergies Home Medications Medication Instructions Recorded Confirmed Type Aspirin EC [Ecotrin Low Dose] 81 mg PO DAILY 06/26/21 06/26/21 History Pravastatin Sodium [Pravachol] 20 mg PO HS 06/26/21 06/26/21 History Allergies Allergy/AdvReac Type Severity Reaction Status Date / Time latex Allergy Rash/Hives Verified 06/26/21 12:42 sulfamethoxazole Allergy Rash/Hives Verified 06/26/21 12:42 [From Bactrim] trimethoprim [From Bactrim] Allergy Rash/Hives Verified 06/26/21 12:42 Physical Exam Vitals: Vital Signs Temp Pulse Resp BP Pulse Ox 06/26/21 16:26 68 18 143/78 98 06/26/21 14:10 64 18 148/84 97 06/26/21 12:34 72 18 170/95 95 06/26/21 10:29 98 F 70 16 155/82 97 Intake and Output 06/26/21 06/26/21 06/26/21 06:59 14:59 22:59 Other: Weight 102.058 kg General: non toxic, mild to moderate distress, appears at stated age. Obese Derm: warm, dry Head: atraumatic, normocephalic, symmetric Eyes: EOMI, no lid lag, anicteric sclera Mouth: no lip lesion, mucus membranes moist Cardiovascular: S1S2 reg, no murmur, positive posterior tibial pulse bilateral, Lungs: CTA bilateral, no rhonchi, no rales , no accessory muscle use Abdominal: soft, nontender to palpation, no guarding, no appreciable organomegaly Ext: no gross muscle atrophy, no edema, no contractures Neuro: CN II-XI grossly intact, no focal neuro deficits Psych: Alert, oriented, appropriate affect Results CBC & Chem 7: 06/26/21 12:20 06/26/21 14:15 Labs: Abnormal Lab Results - Last 24 Hours (Table) 06/26/21 06/26/21 06/26/21 Range/Units 12:20 14:15 15:13 WBC 11.6 H (3.8-10.6) k/uL Neutrophils # 9.8 H (1.3-7.7) k/uL Chloride 109 H (98-107) mmol/L BUN 24 H (7-17) mg/dL Creatinine 1.40 H (0.52-1.04) mg/dL Glucose 103 H (74-99) mg/dL Urine Ketones Trace H (Negative) Urine Blood Small H (Negative) Urine RBC 12 H (0-5) /hpf Urine Mucus Rare H (None) /hpf Assessment and Plan Assessment: #Right kidney stone with right hydronephrosis -CT of the abdomen showed 2 kidney stone at the right UV junction -Nothing by mouth after midnight -Urology consultation -Flomax -Pain control -Antiemetics -IV fluids #History of acute stroke secondary to patent foramen ovale -Status post PFO repair on 2017 -Holding aspirin -Resume statins #Obesity BMI 38 -Weight loss and is recommended #DVT prophylaxis with Lovenox
[2021-06-26] MEDS ORDERED: PRAVASTATIN SODIUM 20 MG TAB PO SCH (21:00)
[2021-06-26 22:47] VITALS: RESP 18
[2021-06-27] MEDS: SODIUM CHLORIDE 0.9% 1,000 ML IV SCH ×2 (03:29→08:18)
[2021-06-27] MEDS ORDERED: TAMSULOSIN 0.4 MG CAP.ER.24H PO SCH (08:30)
--- NOTE | 2021-06-27 08:47 | P.GSCN ---
History of Present Illness Consult date: 06/27/21 Reason for Consult: Right-sided abdominal pain Requesting physician: Kael Baker History of present illness: The patient is a 65-year-old white female known to me. She has a history of urolithiasis. She now presents with a three-day history of right sided flank and abdominal pain, associated with nausea and vomiting. Her symptoms are intractable, requiring admission. CT scan shows mild to moderate right hydronephrosis due to 2 small right distal ureteral calculi. She feels much better this morning. 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 History of Any Multi-Drug Resistant Organisms: None Reported Past Surgical History: Cholecystectomy Additional Past Surgical History / Comment(s): CYST ON FINGER, BUNIONECTOMY, SINUS SURGERY, CYSTO WITH URETEROSCOPY FOR STONE REMOVAL (05/08/16); percutanous closure of PFO with occluder device 08/07/16 Past Anesthesia/Blood Transfusion Reactions: No Reported Reaction Past Psychological History: No Psychological Hx Reported Smoking Status: Never smoker Past Alcohol Use History: None Reported Past Drug Use History: None Reported - Past Family History Mother Family Medical History: Cancer Additional Family Medical History / Comment(s): COLON CANCER Brother(s) Additional Family Medical History / Comment(s): HOLE IN HIS HEART. Medications and Allergies Home Medications Medication Instructions Recorded Confirmed Type Aspirin EC [Ecotrin Low Dose] 81 mg PO DAILY 06/26/21 06/26/21 History Pravastatin Sodium [Pravachol] 20 mg PO HS 06/26/21 06/26/21 History Allergies Allergy/AdvReac Type Severity Reaction Status Date / Time latex Allergy Rash/Hives Verified 06/26/21 12:42 sulfamethoxazole Allergy Rash/Hives Verified 06/26/21 12:42 [From Bactrim] trimethoprim [From Bactrim] Allergy Rash/Hives Verified 06/26/21 12:42 Surgical - Exam Vital Signs Temp Pulse Resp BP Pulse Ox 98 F 70 16 155/82 97 06/26/21 10:29 06/26/21 10:29 06/26/21 10:29 06/26/21 10:06/26/21 10:29 - General well developed, well nourished, no distress - Respiratory normal respiratory effort - Abdomen Soft, non-distended, no mass. Mild right lower quadrant tenderness, no guarding or rebound. - Psychiatric oriented to time, oriented to person, oriented to place, speech is normal, memory intact Results - Labs 06/26/21 12:20 06/26/21 14:15 Abnormal Lab Results - Last 24 Hours (Table) 06/26/21 06/26/21 06/26/21 Range/Units 12:20 14:15 15:13 WBC 11.6 H (3.8-10.6) k/uL Neutrophils # 9.8 H (1.3-7.7) k/uL Chloride 109 H (98-107) mmol/L BUN 24 H (7-17) mg/dL Creatinine 1.40 H (0.52-1.04) mg/dL Glucose 103 H (74-99) mg/dL Urine Ketones Trace H (Negative) Urine Blood Small H (Negative) Urine RBC 12 H (0-5) /hpf Urine Mucus Rare H (None) /hpf Diabetes panel 06/26/21 Range/Units 14:15 Sodium 140 (137-145) mmol/L Potassium 4.6 (3.5-5.1) mmol/L Chloride 109 H (98-107) mmol/L Carbon Dioxide 24 (22-30) mmol/L BUN 24 H (7-17) mg/dL Creatinine 1.40 H (0.52-1.04) mg/dL Glucose 103 H (74-99) mg/dL Calcium 9.2 (8.4-10.2) mg/dL AST 27 (14-36) U/L ALT 17 (4-34) U/L Alkaline Phosphatase 89 (38-126) U/L Total Protein 7.1 (6.3-8.2) g/dL Albumin 4.1 (3.5-5.0) g/dL Calcium panel 06/26/21 Range/Units 14:15 Calcium 9.2 (8.4-10.2) mg/dL Albumin 4.1 (3.5-5.0) g/dL Pituitary panel 06/26/21 Range/Units 14:15 Sodium 140 (137-145) mmol/L Potassium 4.6 (3.5-5.1) mmol/L Chloride 109 H (98-107) mmol/L Carbon Dioxide 24 (22-30) mmol/L BUN 24 H (7-17) mg/dL Creatinine 1.40 H (0.52-1.04) mg/dL Glucose 103 H (74-99) mg/dL Calcium 9.2 (8.4-10.2) mg/dL Adrenal panel 06/26/21 Range/Units 14:15 Sodium 140 (137-145) mmol/L Potassium 4.6 (3.5-5.1) mmol/L Chloride 109 H (98-107) mmol/L Carbon Dioxide 24 (22-30) mmol/L BUN 24 H (7-17) mg/dL Creatinine 1.40 H (0.52-1.04) mg/dL Glucose 103 H (74-99) mg/dL Calcium 9.2 (8.4-10.2) mg/dL Total Bilirubin 0.7 (0.2-1.3) mg/dL AST 27 (14-36) U/L ALT 17 (4-34) U/L Alkaline Phosphatase 89 (38-126) U/L Total Protein 7.1 (6.3-8.2) g/dL Albumin 4.1 (3.5-5.0) g/dL - Imaging CT scan - abdomen: report reviewed, image reviewed Assessment and Plan (1) Calculus of kidney Current Visit: Yes Status: Acute Code(s): N20.0 - CALCULUS OF KIDNEY SNOME D Code(s): 81256086 (2) Calculus of ureter Current Visit: Yes Status: Acute Code(s): N20.1 - CALCULUS OF URETER SNOMED Code(s): 50354397 (3) Hydronephrosis with renal and ureteral calculous obstruction Current Visit: Yes Status: Acute Code(s): N13.2 - HYDRONEPHROSIS WITH RENAL AND URETERAL CALCULOUS OBSTRUCTION SNOMED Code(s): 343012797 Plan: I had a lengthy discussion with the patient regarding her obstructing right distal ureteral calculi. I explained to her that the calculi have a better than 90% chance of passing, though it is impossible to determine when this might occur. I have offered to perform ureteroscopy with laser lithotripsy and stone basketing. Given the fact that she is feeling better this morning and that the calculi have a high chance of passing, she declines surgery at this time. If she remains comfortable throughout the day, discharged home would be reasonable. I would suggest she go home with prescriptions for analgesics and tamsulosin. She will follow up with me in 2 weeks. She was advised to contact me if her intractable symptoms recur. Time with Patient: Greater than 30
[2021-06-27] MEDS ORDERED: ENOXAPARIN 40 MG/0.4 ML SYRINGE SQ SCH (09:00)
[2021-06-27 09:23] LABS: Basophils # (A) 0.02 X 10*3/uL (0.00-0.10); Basophils % (A) 0.3 %; Eosinophils # (A) 0.01 X 10*3/uL (0.04-0.35); Eosinophils % (A) 0.1 %; HCT 37.4 % (37.2-46.3); HGB 11.4 g/dL (12.0-15.0); Immature Grans, Automated 0.3 %; Lymphocytes # (A) 1.41 X 10*3/uL (0.90-5.00); Lymphocytes % (A) 17.8 %; MCH 29.8 pg (27.0-32.0); MCHC 30.5 g/dL (32.0-37.0); MCV 97.9 fL (80.0-97.0); Monocytes # (A) 0.54 X 10*3/uL (0.20-1.00); Monocytes % (A) 6.8 %; NRBC Per 100 WBC 0 /100 WBCS (0.0-0.0); Neutrophils # (A) 5.91 X 10*3/uL (1.80-7.70); Neutrophils % (A) 74.7 %; Platelet Count 270 X 10*3/uL (140-440); RBC 3.82 X 10*6/uL (4.10-5.20); RDW 14.1 % (11.5-14.5); WBC 7.91 X 10*3/uL (4.50-10.00)
[2021-06-27 09:33] LABS: African American GFR (CKD) 84.8 (60.0-200.0); Albumin 3.7 g/dL (3.8-4.9); Albumin/Globulin Ratio 1.84 (1.60-3.17); Anion Gap 9.5 mmol/L (10.00-18.00); BUN/Creat Ratio 22.69 Ratio (12.00-20.00); Blood Urea Nitrogen 18.9 mg/dL (9.0-27.0); Calcium 8.8 mg/dL (8.7-10.3); Carbon Dioxide 23.9 mmol/L (20.0-27.5); Non-African American GFR(CKD) 73.2 (60.0-200.0); Potassium 4.6 mmol/L (3.5-5.5); Total Bilirubin 0.4 mg/dL (0.30-1.20); Total Protein 5.7 g/dL (6.2-8.2)
--- NOTE | 2021-06-27 14:04 | P.DS ---
Providers Date of admission: 06/26/21 18:24 Expected date of discharge: 06/27/21 Attending physician: Jesus Hernandez MD Consults: 06/26/21 18:27 Consult Physician Routine Consulting Provider: Jeffrey Agarwal Consult Reason/Comments: KIDNEY STONES Do you want consulting provider notified?: Yes Primary care physician: Rizawna Goncalves Hospital Course: Discharge Diagnosis: Right sided kidney stones with hydronephrosis, patient started on Flomax evaluated by urology recommending straining of urine with outpatient follow-up in their office in one week. 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 Ellis on your scheduled appointment secondary to its risks of tendon rupture. Hospital Course: Patient is a very pleasant 65-year-old female with a past medical history of renal calculi. 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 Ellis. She presented to the emergency department on 06/26/21 with a chief complaint of right flank pain, nausea, and vomiting. She underwent full evaluation in the emergency department. She was found to have leukocytosis with WBC count of 11.6 and an acute kidney injury with BUN of 24, creatinine 1.40, and GFR of 39 with baseline creatinine of 0.8. Urinalysis was negative for infection. CT abdomen and pelvis revealing to right UVJ calculi measuring 3.5 mm and 2.5 mm with mild to moderate right-sided hydronephrosis and mild right renal edema. Patient was admitted under our services with consultation to urology. She was admitted overnight and treated with IV fluid hydration and pain management. Overnight patient's symptoms improved and pain significantly decreased. At that time patient was evaluated by urology and was initially recommending cystoscopy with lithotripsy, however secondary to patient's s ignificant improvement he is recommending allowing calculi to pass naturally and recommending patient discharged home and strain all urine and follow-up outpatient in his office in one week. In addition to significant improvement in patient's symptoms patient also had resolution of leukocytosis with morning WBC 7.91 and full resolution of acute kidney injury with BUN 18.9, creatinine back to baseline at 0.8, and GFR of 73.2. Patient is medically stable at this time and being discharged home on Flomax, Zofran, and [place]. Patient instructed to strain all urine and to follow-up with PCP and urology. Physical examination: General: non toxic, no distress, appears at stated age Derm: warm, dry Head: atraumatic, normocephalic, symmetric Eyes: EOMI, no lid lag, anicteric sclera Mouth: no lip lesion, mucus membranes moist Cardiovascular: S1S2 reg, no murmur, positive posterior tibial pulse bilateral, Lungs: CTA bilateral, no rhonchi, no rales , no accessory muscle use Abdominal: soft, nontender to palpation, no guarding, no appreciable organomegaly Ext: no gross muscle atrophy, no edema, no contractures Neuro: CN II-XI grossly intact, no focal neuro deficits Psych: Alert, oriented, appropriate affect A total of 38 minutes of time were spent preparing this complex discharge summary. Pt was discharged on 06/27/21 at 1400. Patient Condition at Discharge: Good Plan - Discharge Summary New Discharge Prescriptions: New HYDROcodone/APAP 5-325MG [[place] 5-325] 1 each PO Q4HR PRN #18 tab PRN Reason: Moderate Pain Tamsulosin [Flomax] 0.4 mg PO PC-BRKFST 30 Days #30 tab Ondansetron Odt [Zofran Odt] 8 mg PO Q8HR PRN #24 tab PRN Reason: Nausea Continue Aspirin EC [Ecotrin Low Dose] 81 mg PO DAILY Pravastatin Sodium [Pravachol] 20 mg PO HS Discharge Medication List Aspirin EC [Ecotrin Low Dose] 81 mg PO DAILY 06/26/21 [History] Pravastatin Sodium [Pravachol] 20 mg PO HS 06/26/21 [History] HYDROcodone/APAP 5-325MG [[place] 5-325] 1 each PO Q4HR PRN #18 tab 06/27/21 [Rx] Ondansetron Odt [Zofran Odt] 8 mg PO Q8HR PRN #24 tab 06/27/21 [Rx] Tamsulosin [Flomax] 0.4 mg PO PC-BRKFST 30 Days #30 tab 06/27/21 [Rx] Follow up Appointment(s)/Referral(s): Jeffrey Agarwal MD [STAFF PHYSICIAN] - 1 Week (will call pt to schedule ) Rizwana Goncalves DO [Primary Care Provider] - 1-2 days Patient Instructions/Handouts: Kidney Stones (DC) Activity/Diet/Wound Care/Special Instructions: Activity: As tolerated. Take breaks as needed. Diet: Heart healthy and carb consistent diet. Avoid salts, or foods with hidden salts such as canned or boxed foods and frozen dinners. Extra salt makes your heart work harder and traps the fluid in your body for longer. Special Instructions: Take all of your medications as directed and remember to keep all of your doctor's appointments and follow-up as needed. You will need to follow up with urology next week as discussed. It is recommended to strain your urine at home. Also secondary to reports of your third tendon rupture, I strongly recommend as we discussed to talk with Dr. Ellis at your follow-up appointment on regarding her daily medication regimen with atorvastatin and adverse effects of tendon rupture. Thank you for allowing us to participate in your care, it was truly a pleasure having you for our patient!!! Discharge Disposition: HOME SELF-CARE
[2021-06-27 14:35] VITALS: BP 133/73; PULSE 62; TEMP 98.5
== END 2021-06-27 14:57 | disposition home or self-care (01) ==
LOC: EC 10:11 → 6NMEDSUR 18:24
PROVIDERS: ADMIT Family Medicine; ATTEND Family Medicine
DX: N13.2 Hydronephrosis with renal and ureteral calculous obstruction (principal); N17.9 Acute kidney failure, unspecified; I69.312 Visuospatial deficit and spatial neglect following cerebral infarction; E66.9 Obesity, unspecified; Z68.38 Body mass index [BMI] 38.0-38.9, adult; D72.829 Elevated white blood cell count, unspecified; R60.9 Edema, unspecified; I83.90 Asymptomatic varicose veins of unspecified lower extremity; Z20.822 Contact with and (suspected) exposure to COVID-19; Z90.49 Acquired absence of other specified parts of digestive tract; Z87.442 Personal history of urinary calculi; Z87.74 Personal history of (corrected) congenital malformations of heart and circulatory system; Z91.040 Latex allergy status; Z88.2 Allergy status to sulfonamides; Z79.82 Long term (current) use of aspirin; Z79.899 Other long term (current) drug therapy; Z71.3 Dietary counseling and surveillance; Z71.9 Counseling, unspecified; Z80.0 Family history of malignant neoplasm of digestive organs; Z82.49 Family history of ischemic heart disease and other diseases of the circulatory system
CPT/HCPCS: 96361 ×3; 96372; 96376; 96374; 96375; 99285; 36415; 80053 ×2; 83690; 85025 ×2; 81001; 87636; 74176; G0378 ×2; J2270; J2405; J1650; J1885

== ENCOUNTER → 2021-08-06 | Outpatient (CLI) | payer MEDICARE ==
--- NOTE | 2021-08-06 15:21 | US ---
EXAMINATION TYPE: US kidneys/renal and bladder DATE OF EXAM: 08/06/2021 COMPARISON: CT abdomen and pelvis June 27, 2019 CLINICAL HISTORY: N13.2 HYDRONEPHROSIS W/ CALCULUS. hx of stones EXAM MEASUREMENTS: Right Kidney: 10.0 x 4.9 x 4.2 cm Left Kidney: 12 x 5.3 x 3.7 cm Right Kidney: No hydronephrosis or masses seen Left Kidney: Cystic area seen 5.3 x 4.3 x 4.9 cm Bladder: anechoic Bilateral Jets seen: not seen. Increased cortical echogenicity and cortical thinning bilaterally. Incidental exophytic 4.9 cm simple appearing thin-walled cyst in the left kidney. Cysts or cysts measure larger in size better seen on recent CT. No hydronephrosis bilaterally. Bladder poorly distended and thus suboptimally evaluated. IMPRESSION: No hydronephrosis noted bilaterally. Small bilateral renal calculi on CT less well seen o n ultrasound.
--- NOTE | 2021-08-06 16:07 | XR ---
EXAMINATION TYPE: XR KUB DATE OF EXAM: 08/06/2021 COMPARISON: CT dated 06/26/2021 INDICATION: Hydronephrosis TECHNIQUE: Supine AP view of the abdomen and pelvis. FINDINGS: Questionable millimetric left renal calculi versus artifact. The kidneys are obscured by the overlyin g bowel gas and fecal material. Significant fecal loading of the colon. A few millimetric faint radiopaque shadows are seen in the right side of the pelvis which could repre sent pelvic phleboliths however urinary calculi cannot be excluded. Cholecystectomy clips. Marked degenerative changes of the lower thoracic and lower lumbar spine. IMPRESSION: As above.
== END | disposition home or self-care (01) ==
LOC: RADUSWWP 13:26
PROVIDERS: ATTEND Urology
DX: N20.0 Calculus of kidney (principal)
CPT/HCPCS: 74018; 76770

== ENCOUNTER → 2022-02-24 | Outpatient (CLI) | payer MEDICARE ==
--- NOTE | 2022-02-25 08:18 | XR ---
EXAMINATION TYPE: XR KUB DATE OF EXAM: 02/24/2022 Comparison: 08/06/2021 Clinical History: 66-year-old female left-sided abdominal pain, nausea, N23 Renal Colic Findings: Moderate to advanced degenerative change lower lumbar spine. Degenerative change right greater than l eft hips. Cholecystectomy clips. Lung bases are clear. Rounded retrocardiac density suggesting a mode rate to large hiatal hernia. 5 mm density right mid abdomen. 6 mm density left paramedian mid to lower abdomen. Nonobstructive bowel gas pattern. No significant stool burden. Impression: 6 mm calcification possibly passed into the proximal left ureter. 5 mm nonobstructive right renal preston culus.
== END | disposition home or self-care (01) ==
LOC: RADXRMAIN 17:05
PROVIDERS: ATTEND Urology
DX: N20.0 Calculus of kidney (principal); N23 Unspecified renal colic
CPT/HCPCS: 74018

== ENCOUNTER → 2022-03-02 | Outpatient (CLI) | payer MEDICARE ==
[2022-03-02 18:53] LABS: Basophils # (A) 0.03 X 10*3/uL (0.00-0.10); Basophils % (A) 0.5 %; Eosinophils # (A) 0.03 X 10*3/uL (0.04-0.35); Eosinophils % (A) 0.5 %; HCT 45.3 % (37.2-46.3); HGB 14.1 g/dL (12.0-15.0); Immature Grans, Automated 0.2 %; Lymphocytes # (A) 1.84 X 10*3/uL (0.90-5.00); Lymphocytes % (A) 27.7 %; MCHC 31.1 g/dL (32.0-37.0); MCV 96.4 fL (80.0-97.0); Mean Platelet Volume 10.4 fL (9.5-12.2); Monocytes # (A) 0.28 X 10*3/uL (0.20-1.00); Monocytes % (A) 4.2 %; NRBC Per 100 WBC 0 /100 WBCS (0.0-0.0); Neutrophils # (A) 4.45 X 10*3/uL (1.80-7.70); Neutrophils % (A) 66.9 %; Platelet Count 335 X 10*3/uL (140-440); RDW 13.4 % (11.5-14.5); WBC 6.64 X 10*3/uL (4.50-10.00)
[2022-03-02 22:55] LABS: African American GFR (CKD) 76.7 (60.0-200.0); BUN/Creat Ratio 23.33 Ratio (12.00-20.00); Calcium 10.3 mg/dL (8.7-10.3); Non-African American GFR(CKD) 66.2 (60.0-200.0); Potassium 4.6 mmol/L (3.5-5.5)
== END | disposition home or self-care (01) ==
LOC: LABPAT 13:51
PROVIDERS: ATTEND Urology
DX: Z01.812 Encounter for preprocedural laboratory examination (principal); N20.0 Calculus of kidney; N20.1 Calculus of ureter
CPT/HCPCS: 80048; 85025

== ENCOUNTER 2022-03-05 07:33 | Day surgery (SDC) | payer MEDICARE ==
--- NOTE | 2022-03-04 07:25 | P.GSHP ---
History of Present Illness H&P Date: 03/04/22 Chief Complaint: Left renal colic The patient is a 66-year-old white female with a history of urolithiasis. She recently experienced left lower abdominal and flank pain. KUB x-ray showed a 6 mm left proximal ureteral calculus, as well as a 5 mm right lower pole renal calculus. She is scheduled to undergo left foot surgery later this month, and will be nonambulatory. She thus desires ureteroscopic removal of the calculi. - Constitutional Constitutional: Denies chills, Denies fever - Gastrointestinal Gastrointestinal: Reports nausea - Genitourinary (Female) Genitourinary: Reports flank pain, Reports kidney stones, Denies hematuria Past Medical History Past Medical History: CVA/TIA Additional Past Medical History / Comment(s): STROKE 05/07/16 WITH LOSS OF PERIPHERAL VISION., TORN TENDON & LIGAMENT RIGHT FOOT having surge 03/20/22, VARICOSE VEINS., HX OF EPISTAXIS WITH CAUTERIZATION ., KIDNEY STONE WITH BLOOD CLOTS FOUND AROUND THE KIDNEY History of Any Multi-Drug Resistant Organisms: None Reported Past Surgical History: Cholecystectomy Additional Past Surgical History / Comment(s): CYST ON FINGER, BUNIONECTOMY, SINUS SURGERY, CYSTO WITH URETEROSCOPY FOR STONE REMOVAL (05/08/16); percutanous closure of PFO with occluder device 08/07/16 Past Anesthesia/Blood Transfusion Reactions: No Reported Reaction Smoking Status: Never smoker - Past Family History Mother Family Medical History: Cancer Additional Family Medical History / Comment(s): COLON CANCER Brother(s) Additional Family Medical History / Comment(s): HOLE IN HIS HEART. Medications and Allergies Home Medications Medication Instructions Recorded Confirmed Type Aspirin EC [Ecotrin Low Dose] 325 mg PO DAILY 06/26/21 03/02/22 History Pravastatin Sodium [Pravachol] 20 mg PO HS 06/26/21 03/02/22 History Allergies Allergy/AdvReac Type Severity Reaction Status Date / Time latex Allergy Rash/Hives Verified 03/02/22 09:47 sulfamethoxazole Allergy Rash/Hives Verified 03/02/22 09:47 [From Bactrim] trimethoprim [From Bactrim] Allergy Rash/Hives Verified 03/02/22 09:47 Surgical - Exam - General well developed, well nourished, no distress - Respiratory normal respiratory effort - Abdomen Abdomen: soft, non tender, no guarding, no rigid, no rebound - Psychiatric oriented to time, oriented to person, oriented to place, speech is normal, memory intact Assessment and Plan (1) Calculus of ureter Status: Acute Code(s): N20.1 - CALCULUS OF URETER SNOMED Code(s): 94505026 (2) Calculus of kidney Status: Acute Code(s): N20.0 - CALCULUS OF KIDNEY SNOMED Code(s): 43561792 Plan: Cystoscopy, bilateral ureteroscopy with Holmium laser lithotripsy and possible stone basketing, bilateral ureteral stent insertion. The procedure has been reviewed in detail with the patient. She is aware of potential risks, which include anesthesia, bleeding, infection, inability to successfully remove the calculi, and ureteral injury.
[~2022-03-05 07:33] MED LIST changes: -DEXAMETHASONE SOD PHOSPHATE 10 MG/ML 1 ML VIAL IV ONE; +DEXAMETHASONE SOD PHOSPHATE 4 MG/ML 1 ML VIAL IV ONE; -HYDROmorphone 0.5 MG/0.5 ML SYRINGE IVP PRN; -LACTATED RINGERS 1,000 ML IV SCH; -ceFAZolin 1,000 MG in DEXTROSE/WATER 1 50ML.BAG IV ONE
[2022-03-05] MEDS ORDERED: HYDROmorphone 0.5 MG/0.5 ML SYRINGE IVP PRN (07:55)
[2022-03-05] MEDS ORDERED: LIDOCAINE 1% (10MG/ML) FOR IV START INTRADERMA PRN (07:55)
[2022-03-05] MEDS ORDERED: LACTATED RINGERS 1,000 ML IV SCH (07:55)
[2022-03-05] MEDS ORDERED: LACTATED RINGERS 1,000 ML IV ONE ×2 (08:04→09:49)
--- NOTE | 2022-03-05 08:07 | XR ---
EXAMINATION TYPE: XR KUB DATE OF EXAM: 03/05/2022 7:55 AM CLINICAL HISTORY: Left ureteral calculus. Right renal stone. TECHNIQUE: Two supine KUB images of the abdomen are obtained. COMPARISON: Most recent abdominal x-ray February 24, 2022.. FINDINGS: Small bilateral renal calculi less well seen on current study. There are 2 suspected stones up to 6 mm lower pole left kidney. Prior visualized 6 mm left proximal to mid ureter calculus not cl early seen. Approximately 4 mm lower pole right renal calculus less well seen on current study. Overall nonobstructive bowel gas pattern. Cholecystectomy clips are seen. There is multilevel disc sp altaf narrowing and spurring with endplate sclerosis and multilevel vacuum disc phenomenon redemonstrat ed. IMPRESSION: As above
[2022-03-05] MEDS ORDERED: ONDANSETRON 4 MG/2 ML VIAL ONE (08:19)
[2022-03-05] MEDS ORDERED: MIDAZOLAM 2 MG/2 ML VIAL ONE (08:51)
[2022-03-05] MEDS ORDERED: PROPOFOL 10 MG/ML 20 ML VIAL IV ONE (08:51)
[2022-03-05] MEDS ORDERED: ePHEDrine 50 MG/ML 1 ML VIAL ONE (08:51)
[2022-03-05] MEDS ORDERED: LIDOCAINE 2% INJ 20 MG/ML (2 ML VIAL) ONE (08:51)
[2022-03-05] MEDS ORDERED: KETOROLAC 15 MG/ML 1 ML VIAL ONE (08:51)
[2022-03-05] MEDS ORDERED: fentaNYL (PF) 50 MCG/ML 2 ML AMP ONE (08:51)
[2022-03-05] MEDS ORDERED: SUCCINYLCHOLINE CHLORIDE 200 MG/10 ML VIAL IV ONE (08:51)
[2022-03-05] MEDS ORDERED: IOPAMIDOL-370 50ML BTL IRRIGATION ONE (09:11)
--- NOTE | 2022-03-05 09:57 | P.OP ---
Date of Procedure: 03/05/22 Preoperative Diagnosis: Left ureteral calculus, right renal calculus Postoperative Diagnosis: Bilateral renal calculi Procedure(s) Performed: Cystoscopy, bilateral retrograde pyelograms, bilateral ureteroscopy with Holmium laser lithotripsy and stone basketing, right ureteral stent insertion Anesthesia: SHAY Surgeon: Jeffrey Agarwal Estimated Blood Loss (ml): 5 IV fluids (ml): 800 Pathology: other (Calculus fragments, sent for chemical analysis) Condition: stable Disposition: PACU Indications for Procedure: The patient is a 66-year-old white female with a history of urolithiasis. She recently experienced left lower abdominal and flank pain. KUB x-ray showed a 6 mm left proximal ureteral calculus, as well as a 5 mm right lower pole renal calculus. She is scheduled to undergo left foot surgery later this month, and will be nonambulatory. She thus desires ureteroscopic removal of the calculi. Operative Findings: 3 very small left renal calculi were removed. A left ureteral calculus was not seen. A 5 mm right lower pole renal calculus was fragmented and removed. Description of Procedure: The patient was taken to the operating room and placed in the dorsolithotomy position, with legs supported in Robert stirrups. The external genitalia was prepped and draped sterilely. The 30 lens was used to introduce the 21-[place]an [place] cystoscopic sheath through the urethra and into the bladder under direct vision. The bladder was examined in its entirety. Both ureteral orifices were normal anatomic location and configuration, and clear urine effluxed from both. No tumors or foreign bodies were seen. Using a 10-Sing[place]an cone-tipped catheter, bilateral retrograde pyelograms were performed. No abnormalities were seen. Specifically, no ureteral calculi were seen. There were no filling defects, and there was no evidence of hydronephrosis. The cystoscope was removed. The [employer] flexible ureteroscope was advanced in the bladder, and the left ureteral orifice was cannulated. The ureteroscope was slowly advanced under direct vision, up to the left renal pelvis. Each calyx was examined. 2 small calculi were seen within an upper pole calyx, one submucosal. A third small calculus was seen within a lower pole calyx. The 272 holmium laser probe was passed through the ureteroscope. The submucosal calculus was fragmented and released. A 1.9- [place]an nitinol basket was used to remove all calculi. Once this was completed, pullout ureteroscopy showed no evidence of ureteral trauma. The right ureteral orifice was cannulated with the ureteroscope, but it could n ot be advanced beyond the intramural portion of the ureter. A 0.035 inch Glidewire was passed through the ureteroscope and advanced up to the renal pelvis. An 11/13-Sing[place]an ureteral access catheter was passed over the wire, up to the proximal ureter. The flexible ureteroscope was then passed through the ureteral access catheter sheath, up to the renal pelvis. Each calyx was examined. A 5 mm calculus was identified within a lower pole calyx. The stone basket was used to relocate the calculus into an upper pole calyx, where lithotripsy was performed. After fragmenting the calculus, the calculus fragments were removed using the 1.9-Singaporean nitinol basket. Once this was completed, the Glidewire was passed through the ureteral access catheter sheath, which was removed. The Glidewire was backloaded into the cystoscope, which was advanced into the bladder. A 24 cm, 4.8-Singaporean double-J ureteral stent was placed over the wire. Proper stent positioning was verified fluoroscopically and endoscopically. The bladder was emptied and the cystoscope removed. The patient tolerated the procedure well and was taken to the recovery room in stable condition. MUSIC ROCKS Report: Procedure Acuity: Semi-Urgent Stone Size and Location: 5 mm, right lower pole Ureteral Dilation: No Ureteral Access Sheath Used: Yes Stone Sent for Analysis: Yes All Stones/Fragments Were Removed with a Basket: Yes Complications: No Preoperative Antibiotics Given: Yes Stent Placed: Yes If Stent Placed, Was String Left Attached: No If Stent Placed, When is it to be Removed: 1 week Discharge Medications: Tamsulosin, Toradol
--- NOTE | 2022-03-05 10:04 | FL ---
EXAMINATION TYPE: FL urography retrograde DATE OF EXAM: 03/05/2022 CLINICAL HISTORY: Bilateral kidney stones. TECHNIQUE: Fluoroscopy. COMPARISON: Single abdominal x-ray.. FINDINGS: Fluoroscopic guidance was provided during left ureter stone treatment procedure performed by Dr. Agarwal. A total of 24 seconds of fluoroscopic time was utilized during the procedure and 3 sp ot images was acquired. Please refer to procedure note for further details. IMPRESSION: As Above.
[2022-03-05 10:10] VITALS: TEMP 97.3
[2022-03-05 11:09] VITALS: RESP 16
[2022-03-05 11:44] VITALS: BP 127/70; PULSE 71
== END 2022-03-05 12:19 | disposition home or self-care (01) ==
LOC: OR 07:33
PROVIDERS: ATTEND Urology
DX: N20.2 Calculus of kidney with calculus of ureter (principal); Z86.73 Personal history of transient ischemic attack (TIA), and cerebral infarction without residual deficits; Z90.49 Acquired absence of other specified parts of digestive tract; Z80.0 Family history of malignant neoplasm of digestive organs; Z79.82 Long term (current) use of aspirin; Z91.040 Latex allergy status; Z88.1 Allergy status to other antibiotic agents; Z88.2 Allergy status to sulfonamides; Z79.899 Other long term (current) drug therapy
CPT/HCPCS: 82365; 74420; 74018; 52356; C2625; C1758; C1769; J2250; J0330; J1100; J0690; J2405; J3010; J1885; J2704; Q9967; J2001

== ENCOUNTER 2022-03-20 06:58 | Day surgery (SDC) | payer MEDICARE ==
[2022-03-17 15:17] VITALS: BMI 36.6
[~2022-03-20 06:58] MED LIST changes: +LACTATED RINGERS 1,000 ML IV SCH; +LIDOCAINE 1% (10MG/ML) FOR IV START INTRADERMA PRN
[2022-03-20] MEDS ORDERED: HYDROmorphone 0.5 MG/0.5 ML SYRINGE IVP PRN (07:00)
[2022-03-20] MEDS ORDERED: MIDAZOLAM 2 MG/2 ML VIAL IVP ONE (08:09)
[2022-03-20] MEDS ORDERED: fentaNYL (PF) 50 MCG/1 ML VIAL IVP ONE (08:09)
[2022-03-20] MEDS ORDERED: GLYCOPYRROLATE 0.2 MG/ML 2 ML VIAL ONE (08:47)
[2022-03-20] MEDS ORDERED: PHENYLEPHRINE-0.9% NACL SYG 1,000 MCG/10 ML SYRINGE ONE (08:47)
[2022-03-20] MEDS ORDERED: SODIUM CHLORIDE 0.9% (PF) 10 ML VIAL ONE (08:47)
[2022-03-20] MEDS ORDERED: ROPIVACAINE 5 MG/ML 30 ML VIAL ONE (08:47)
[2022-03-20] MEDS ORDERED: ePHEDrine 50 MG/ML 1 ML VIAL ONE (08:47)
[2022-03-20] MEDS ORDERED: PROPOFOL 10 MG/ML 20 ML VIAL IV ONE (08:47)
[2022-03-20] MEDS ORDERED: fentaNYL (PF) 50 MCG/ML 2 ML AMP ONE (08:47)
[2022-03-20] MEDS ORDERED: LIDOCAINE 2% INJ 20 MG/ML (2 ML VIAL) ONE (08:47)
[2022-03-20] MEDS ORDERED: ceFAZolin 1,000 MG in SODIUM CHLORIDE 0.9% 1,000 ML IRRIGATION ONE (08:52)
[2022-03-20] MEDS ORDERED: LACTATED RINGERS 1,000 ML IV ONE (10:40)
[2022-03-20 11:03] VITALS: TEMP 96.8
--- NOTE | 2022-03-20 11:43 | P.ANPRN ---
Procedure Note - Anesthesia - Nerve Block Performed Left Popliteal Single Time Out Performed: Yes (809) Date of Procedure: 03/20/22 Procedure Start Time: 08:10 Procedure Stop Time: 08:14 Location of Patient: PreOp Indication: Acute Post-Operative Pain, Requested by Surgeon Specifically requested for management of pain by DrJoann: Basilio Palomino Sedation Type: Sedate with meaningful contact maintained Preparation: Sterile Prep Position: Right Lateral Catheter: None Needle Types: Pajunk Needle Gauge: 21 Ultrasound used to visualize needle placement: Yes Ultrasound used to observe medication spread: Yes Injectate: 0.5% Ropivacaine (see comment for volume) (15cc+ 10cc nacl pf) Blood Aspirated: No Pain Paresthesia on Injection Noted: No Resistance on Injection: Normal Image Stored and Saved: Yes Events: Uneventful and Well Tolerated
--- NOTE | 2022-03-20 11:47 | P.ANPRN ---
Procedure Note - Anesthesia - Nerve Block Performed Right Adductor Canal Single Time Out Performed: Yes ([id number]) Date of Procedure: 03/20/22 Procedure Start Time: 08:15 Procedure Stop Time: 08:17 Location of Patient: PreOp Indication: Acute Post-Operative Pain, Requested by Surgeon Specifically requested for management of pain by DrJoann: Basilio Palomino Sedation Type: Sedate with meaningful contact maintained Preparation: Sterile Prep Position: Supine Catheter: None Needle Types: Pajunk Needle Gauge: 21 Ultrasound used to visualize needle placement: Yes Ultrasound used to observe medication spread: Yes Injectate: 0.5% Ropivacaine (see comment for volume) (15cc + 5cc nacl pf) Blood Aspirated: No Pain Paresthesia on Injection Noted: No Resistance on Injection: Normal Image Stored and Saved: Yes Events: Uneventful and Well Tolerated
[2022-03-20 12:21] VITALS: RESP 16
[2022-03-20] MEDS ORDERED: HYDROcodone/APAP 7.5-325MG 1 EACH TAB ONE (12:30)
[2022-03-20] MEDS ORDERED: HYDROcodone/APAP 7.5-325MG 1 EACH TAB PO ONE (12:33)
[2022-03-20 13:29] VITALS: BP 133/75; PULSE 100
--- NOTE | 2022-03-20 14:01 | P.OP ---
Date of Procedure: 03/20/22 Preoperative Diagnosis: 1. Spontaneous rupture flexor tendon left ankle 2. Acquired deformity left foot 3. Subluxation of tarsal joint left foot 4. Gastroc equinus left ankle 5. Hammertoe second digit left foot Postoperative Diagnosis: 1. Same 2. Same 3. Same 4. Same 5. Same Procedure(s) Performed: 1. Flexor digitorum longus tendon transfer left ankle 2. Bhatti calcaneal osteotomy with allograft left foot 3. Open repair of dislocated tarsal joint left foot 4. Gastroc recession left leg 5. Hammertoe correction second digit left foot Implants: Andrzej's bone allograft Arthrex compression staple Arthrex spring ligament internal brace Arthrex 5.5mm x 15mm interference screw Arthrex 16mm Dynanite hammertoe implant Anesthesia: SHAY Surgeon: Basilio Palomino Estimated Blood Loss (ml): 5 Pathology: none sent Condition: stable Disposition: PACU Description of Procedure: Prior to the patient being brought to the operative room, anesthesia administered a nerve block on the left lower extremity. The patient was then brought into the operating room and placed on table in the supine position. Timeout was taken to confirm correct patient identifiers, correct laterality of surgery, and correct procedure. Once all staff in the room were in agreement with the timeout, the patient was induced and placed under general anesthesia. A well-padded tourniquet was placed on the left thigh and a bump underneath the hip to internally rotate the leg. The leg was prepped and draped in usual manner. The leg was exsanguinated and the tourniquet inflated to 250 mmHg. Attention was directed over the lateral aspect of the hindfoot, where an incisio n was made over the anterior process of the calcaneus. The incision was deepened down through the subcutaneous layer careful to identify, avoid, and retract any neurovascular structures and cauterize any bleeding vessels. Blunt dissection was then carried down to the deep fascia overlying the peroneal tendons. The fascia was incised superior to the path of the peroneal tendons and then reflected full-thickness off the anterior process the calcaneus. The calcaneocuboid joint was identified and a cody made approximately 12 mm proximal to indicate the placement of the osteotomy. Then the Bhatti osteotomy was completed through the anterior process of the calcaneus from lateral to medial. An osteotome was inserted into the osteotomy to free up any soft tissue attachments. Then guidewires for a distractor were placed on either side of the osteotomy. The distractor was placed over the wires and then opened until the desired amount of transverse plane correction of the forefoot was achieved. Then the sizers were placed into the osteotomy to determine the appropriate sized allograft. Once the appropriate sized allograft was chosen, it was inserted into the osteotomy and impacted down to proper depth. Fluoroscopy was used to show the proper placement of the graft. The distractor and the guidewires were removed, and then drill holes for a 20 mm compression staple were placed on either side of the graft. The staple was placed in the christensen with the legs stretched and then inserted into the drill holes. The stick inserter was released to allow the legs of the colby to begin compression. Fluoroscopic imaging confirmed the proper placement of the staple. The wound was then thoroughly irrigated with antibiotic saline. The deep tissue was closed with 3-0 Vicryl. Subcutaneous closure was completed with 4-0 Monocryl. And skin closure done with colby. The wedge underneath the hip was then removed to allow the leg to externally rotate. Attention then directed to the posterior calf area where an incision was made just medial to the midline and distal to the gastroc muscle belly. It was deepened down to the subcutaneous tissue careful to identify, avoid, and retract any neurovascular structures and cauterize any bleeding vessels. Blunt dissection was carried through the subcutaneous layer, down to the deep fascia. The deep fascia was incised and reflected, and then blunt dissection was continued until the aponeurosis of the gastrocsoleus complex was encountered. The aponeurosis was mobilized and a transverse incision was made from lateral to medial through the tissue. The ankle was then dorsiflexed and a gap appeared in the aponeurosis, indicating a full release. The wound was then thoroughly irrigated with antibiotic saline. Subcu closure was completed with 3-0 Monocryl. Skin closure done with colby. Attention was then directed over the medial aspect of the foot. An incision was made from distal to the navicular tuberosity extending superior to the medial malleolus, along the course of the posterior tibial tendon. The incision was deepened down to the subcutaneous tissue, careful to identify, avoid, and retract any neurovascular structures and cauterize any bleeding vessels. Dissection was continued down to the sheath overlying the posterior tibial tendon. The sheath was incised to expose the tendon. The tendon showed significant pathology including longitudinal split tears and extreme thickening along its entire course. At the proximal aspect of the incision the tendon sheath of the flexor digitorum longus muscle was identified just posterior to the posterior tibial tendon. A [id number] anastomosis of the 2 tendons was then completed. Then the posterior tibial tendon was sharply resected just distal to the aponeurosis. The tendon was then dissected free from surrounding soft tissue and then sharply dissected off of the navicular tuberosity. Going back to the proximal aspect of the incision, the tendon sheath for the flexor digitorum longus was incised all the way to the mid foot. Then the tendon was transected and delivered in the surgical field. A whipstitch was then placed in the distal end. Dissection was then completed over the sustentaculum jojo. Utilizing direct fluoroscopic visualization a guidewire for cannulated drill bit was then positioned over the sustentaculum jojo. Once position was and confirmed under fluoroscopy, it was advanced into the calcaneus and a plantar and posterior direction. Then the drill was inserted over the wire and the hole drilled to proper depth and then the tap was inserted over the wire and the hole tapped to proper depth. A 3.5 mm anchor with attached suture was then inserted into the drill hole and impacted and advanced to proper depth. The stick inserter was removed and the suture set aside. Then attention was directed to the navicular tuberosity were large guidewire was inserted on the plantar aspect of the tuberosity and advanced to the dorsal aspect of the talar body. This was done under direct fluoroscopic visualization to avoid the talonavicular and navicular cuneiform joints. A 6.0 mm reamer was then placed over the guidewire to ream the navicular body. The 2 arms of suture from the whipstitch as well as one arm from the spring ligament repair kit on the plantar aspect was placed through the eyelet in the guidewire. All 3 sutures were then passed from plantar to dorsal in the drill hole of the navicular. During that time a shuttle stitch was also passed in the same direction which was then used to tape the dorsal arm of the spring ligament repair and passed the suture from dorsal to plantar. With the foot held in the correct position, tension was placed on the sutures holding the tendon to pull the tendon into the drill hole of the navicular. Then that was clamped in place so that tension would be maintained and then the 2 arms of this bring ligament repair kit were tensioned until they were appropriately tightened. Then a 5.5 x 15 mm interference screw was inserted through the drill hole the navicular on the plantar aspect locking the tendon and suture in place. The foot was taken through range of motion and the medial arch visually inspected. There was proper attention to the soft tissue repair. There is also spiritism of the medial longitudinal arch and transverse plane deformity of the forefoot. All suture was then cut and the wound thoroughly irrigated with antibiotic saline. The sheath over the posterior tibial tendon was closed with 0 Vicryl. Subcutaneous closure was done with 4-0 Monocryl. And skin closure done with colby. Attention was directed to the second digit, where a linear incision was made over the proximal interphalangeal joint. The incision was deepened down to the subcutaneous tissue careful to identify, avoid, and retract any neurovascular structures and cauterize any bleeding vessels. Dissection was then carried down to the proximal interphalangeal joint. The ligamentous and capsular tissues of the proximal phalanx were transversely incised through the proximal interphalangeal joint, exposing the head of the proximal phalanx and articular surfaces of the base of the middle phalanx. A sagittal saw was used to resect the head of the proximal phalanx perpendicular to the deformity, and the saw was also used to remove the articular surface of the base of the middle phalanx. The guidewire was then used to create the marine pilot hole in the proximal phalanx. Alignment was checked under fluoroscopy and once that is factory, the larger of the drill bits was used to create the drill hole the proximal phalanx. The wire was removed and then inserted the central aspect of the base of the middle phalanx and advanced out the distal aspect of the toe. Small drill bit was then used to create the marine pilot hole in the middle phalanx. The wire was retracted distally Hicks small portion was protruding for the base of middle phalanx. A 16 mm Arthrex hammertoe screw implant was then placed over the wire and the threaded portion advanced into the middle phalanx until proper depth was achieved. Fluoroscopy confirmed the proper placement of the implant in the middle phalanx. Then the arms of the proximal portion of the implant were aligned with the drill hole the proximal phalanx there were then inserted into the drill hole and then the digit was compressed to bring the ends of the bone together. An impactor was placed over the wire and used to help fully compressed and seat the implant. Fluoroscopic imaging showed good bony contact at the arthrodesis site with proper placement of the implant and deformity correction. The wire was advanced to deployed the proximal arms of the implant. And then the wire was removed. The wound is thoroughly irrigated with antibiotic saline. The extensor tendon was reapproximated with 3-0 Vicryl. Skin closure was done with 3-0 nylon. Jumpstart dressings were placed over all the incisions of the right foot. A bulky dry dressing was then applied to the right lower extremity. The tourniquet was released and capillary refill return to all digits on the right foot. The patient was then placed in a well-padded, well molded plaster posterior mold/sugar tong splint the foot was held in slight inversion and ankle in neutral position as it dried. Once dry, anesthesia was reversed and the patient was taken recovery with vital signs stable.
== END 2022-03-20 13:44 | disposition home or self-care (01) ==
LOC: OR 06:58
PROVIDERS: ATTEND Podiatrist
DX: M20.42 Other hammer toe(s) (acquired), left foot (principal); G89.18 Other acute postprocedural pain; S93.312A Subluxation of tarsal joint of left foot, initial encounter; M20.62 Acquired deformities of toe(s), unspecified, left foot; M66.372 Spontaneous rupture of flexor tendons, left ankle and foot; M76.822 Posterior tibial tendinitis, left leg; M21.6X2 Other acquired deformities of left foot; X58.XXXA Exposure to other specified factors, initial encounter
CPT/HCPCS: 64447; 64445; 76942; 28285; 27687; 27691; 27695; 28300; 28555; C1713 ×3; J2250; J1100; J0690 ×2; J2405; J3010 ×2; J2795; J2370; J2704; J2001

== ENCOUNTER → 2022-07-01 | Outpatient (CLI) | payer MEDICARE ==
--- NOTE | 2022-07-01 14:42 | US ---
EXAMINATION TYPE: US kidneys/renal and bladder DATE OF EXAM: 07/01/2022 COMPARISON: Renal ultrasound 08/06/2021, KUB radiograph 03/05/2022, CT abdomen and pelvis 06/26/2021 CLINICAL INDICATION: Female, 66 years old with history of N20.0 calculus of kidney; h/o renal stones, patient does not think she has any now, no symptoms EXAM MEASUREMENTS: Right Kidney: 10.1 x 4.1 x 5.3 cm Left Kidney: 10.9 x 4.6 x 5.0 cm Right Kidney: No hydronephrosis or masses seen Left Kidney: 5.0 x 5.6 x 5.5cm anechoic lesion inferior pole Bladder: not distended There is no evidence for hydronephrosis at this point in time. No shadowing nephrolithiasis is seen. Simple left inferior pole renal cyst measuring up to 5.6 cm. No solid masses are identified. Cortic omedullary differentiation maintained bilaterally. The urinary bladder is is not well distended and p oorly visualized. IMPRESSION: 1. No hydronephrosis or shadowing nephrolithiasis. 2. Left renal simple cyst.
== END | disposition home or self-care (01) ==
LOC: RADUSWWP 13:56
PROVIDERS: ATTEND Urology
DX: N20.0 Calculus of kidney (principal); N28.1 Cyst of kidney, acquired
CPT/HCPCS: 76770

== ENCOUNTER → 2023-02-03 | Outpatient (CLI) | payer MEDICARE ==
[2023-02-03 19:22] LABS: ALT 23 U/L (8-44); AST 24 U/L (13-35); Chol/HDL Ratio 3.23 Ratio; LDL Cholesterol,Calculated 137.5 mg/dL (0.0-131.0)
== END | disposition home or self-care (01) ==
LOC: LABWHC1 12:15
PROVIDERS: ATTEND Internal Medicine Interventional Cardiology
DX: E78.00 Pure hypercholesterolemia, unspecified (principal)
CPT/HCPCS: 36415; 80061; 84450; 84460

== ENCOUNTER → 2024-01-05 | Outpatient (CLI) | payer MEDICARE ==
--- NOTE | 2024-01-05 13:14 | XR ---
EXAMINATION TYPE: XR KUB DATE OF EXAM: 01/05/2024 COMPARISON: Multiple KUB radiographs most recent 03/05/2022 HISTORY: N 20.0 calculus kidney TECHNIQUE: Single upright KUB image of the abdomen is obtained FINDINGS: Small bowel demonstrates no evidence for dilatation or air fluid levels. Gas and fecal material is seen in non-distended colon. No convincing evidence for pneumoperitoneum. No unusual calcifications. No definitive renal or ureteral calculi. Elevated right hemidiaphragm. Cholecystectomy clips in right upper quadrant. The osseous structures are intact. Degenerative changes of the lumbar spine. Scoliotic curvature of t he thoracic lumbar spine. IMPRESSION: 1. Overall nonobstructive bowel gas pattern. 2. No definitive renal or ureteral calculi. [facility], , 01/05/2024 1:11 PM
== END | disposition home or self-care (01) ==
LOC: RADXRMAIN 12:47
PROVIDERS: ATTEND Urology
DX: N20.0 Calculus of kidney (principal)
CPT/HCPCS: 74018

== ENCOUNTER → 2024-02-08 | Outpatient (CLI) | payer MEDICARE ==
--- NOTE | 2024-02-08 17:20 | US ---
EXAMINATION TYPE: US mass soft tissue chest/back DATE OF EXAM: 02/08/2024 COMPARISON: NONE CLINICAL INDICATION: Female, 68 years old with history of R22.2 SWELLING MASS LUMP; Pt states large, palpable lump right upper back, lump is soft TECHNIQUE: Superficial right upper back lump FINDINGS: Isoechoic area right upper back at pt's palpable lump= 8.1 x 2.0 x 6.1 cm IMPRESSION: There is an isoechoic area measuring up to 8.1 cm overlying the area of palpable abnorma lity. Finding is nonspecific possibly related to lipoma. Correlation with CT scan is recommended. [facility], , 02/08/2024 5:18 PM
== END | disposition home or self-care (01) ==
LOC: RADUSWWP 16:00
PROVIDERS: ATTEND Family Medicine
DX: R22.2 Localized swelling, mass and lump, trunk (principal)

== ENCOUNTER → 2024-02-14 | Outpatient (CLI) | payer MEDICARE ==
--- NOTE | 2024-02-14 12:08 | CT ---
EXAMINATION TYPE: CT chest wo con CT DLP: 1312 mGycm, Automated exposure control for dose reduction was used. DATE OF EXAM: 02/14/2024 11:30 AM COMPARISON: Ultrasound mass soft tissue 02/08/2024 CLINICAL INDICATION:Female, 68 years old with history of R22.2 Localized swelling, mass and lump,trun k; PHH, MASS UPPER BACK/NECK TECHNIQUE: Multiple axial images were obtained through the chest without IV contrast. Lack of IV or o ral contrast limits evaluation of solid and hollow organ viscera. . Coronal and sagittal reformats re viewed. FINDINGS: LUNGS/ PLEURA: No pleural effusion, pneumothorax, or focal consolidation. No suspicious pulmonary nod ule or mass. AIRWAY: Patent and unremarkable.. HEART: Size within normal limits.Atrial septal occlusion device identified. No pericardial effusion. MEDIASTINUM: No gross evidence of adenopathy. VASCULATURE: No aortic aneurysm. Mild atherosclerotic calcification of the aortic arch. MUSCULOSKELETAL: No acute osseous abnormalities. Bilateral shoulder arthropathy. Multilevel degenerat tyra disc disease of the visualized spine. SOFT TISSUES/LYMPH NODES: Unremarkable. No distinct mass identified within the upper back correspondi ng to ultrasound. LOWER NECK: No significant findings. UPPER ABDOMEN: Gallbladder is surgically absent. Partial visualization of left renal cyst measuring u p to 5.6 cm. IMPRESSION: No acute thoracic process. No distinct mass identified within the upper back soft tissues correspondi ng to ultrasound. [facility], , 02/14/2024 12:06 PM
== END | disposition home or self-care (01) ==
LOC: RADCTMAIN 11:09
PROVIDERS: ATTEND Family Medicine
DX: R22.2 Localized swelling, mass and lump, trunk (principal)
CPT/HCPCS: 71250

== ENCOUNTER → 2024-04-27 | Outpatient (CLI) | payer MEDICARE ==
--- NOTE | 2024-04-27 12:05 | MR ---
EXAMINATION TYPE: MR cervical spine wo con DATE OF EXAM: 04/27/2024 11:39 AM COMPARISON: None. CLINICAL INDICATION: Female, 68 years old with history of M54.12 RADICULOPATHY, CERVICAL REGION M54.2 ; PHH, Neck pain, headaches TECHNIQUE: Multi planar, multi sequence imaging was performed utilizing: T1-weighted, T2-weighted, an d turbo inversion recovery imaging of the cervical spine. IV Contrast: mL (None, if empty) FINDINGS: Alignment: The cervical vertebral bodies have preserved heights. Alignment is within normal limits gi robert patient positioning. Bones: Bone signal is within normal limits. No abnormal bone marrow edema on inversion recovery seque nces. Cord: The spinal cord is unremarkable with regards to their signal intensity and morphology. Discs: Intervertebral disc signal is maintained. C2-C3: No significant disc pathology. The spinal canal is patent. No neural foraminal stenosis. C3-C4: No significant disc pathology. The spinal canal is patent. Bilateral facet and uncovertebral joint arthropathy are present with mild left neural foraminal stenosis. The right neural foramen is p atent. C4-C5: A disc osteophyte complex is present which minimally narrows the ventral subarachnoid space. Bilateral facet and uncovertebral joint arthropathy are present with mild to moderate left neural fo raminal stenosis. The right neural foramen is patent. C5-C6: A disc osteophyte complex is present which minimally narrows the ventral subarachnoid space. Bilateral facet and uncovertebral joint arthropathy are present with [id number] left neural fo raminal stenosis. The right neural foramen is patent. C6-C7: A disc osteophyte complex is present which minimally narrows the ventral subarachnoid space. No neural foraminal stenosis. C7-T1: No significant disc pathology. The spinal canal is patent. No neural foraminal stenosis. Other: None. IMPRESSION: 1. No evidence for disc herniation or significant spinal canal stenosis. 2. Moderate disc degeneration with associated osteoarthritic changes. [facility], , 04/27/2024 12:02 PM
== END | disposition home or self-care (01) ==
LOC: RADMRIMAIN 10:29
PROVIDERS: ATTEND Psychiatry & Neurology Neurology
DX: M50.121 Cervical disc disorder at C4-C5 level with radiculopathy (principal); M47.22 Other spondylosis with radiculopathy, cervical region
CPT/HCPCS: 72141

== ENCOUNTER → 2024-08-10 | Outpatient (CLI) | payer MEDICARE ==
--- NOTE | 2024-08-10 13:35 | MM ---
Reason for Exam: Clinical finding. Last screening mammogram was performed 4 month(s) ago. Indicated Problems: Pain of the left side (Focal) for 4 Month(s) : started after last mammo 04/18. Patient History: Menarche at age 11. Patient has no children. Postmenopausal. Risk Values: Aliza 5 year model risk: 1.9%. NCI Lifetime model risk: 5.9%. Prior Study Comparison: 06/22/2016 Bilateral Screening Mammogram, Unknown. 05/02/2018 Bilateral Screening Mammogram, Unknown. 10/01/2020 Bilateral Screening Mammogram, Unknown. 09/03/2022 Bilateral Screening Mammogram, Unknown. 03/28/2024 Bilateral MG 3D screening mammo w/cad, Unknown. Tissue Density: Left: There are scattered areas of fibroglandular density. Findings: Analyzed By CAD. No suspicious microcalcifications, significant masses, or other discrete abnormality is seen. No significant change from prior exams. Skin marker indicating pain along the medial aspect of the breast. Overall Assessment: Incomplete: need additional imaging evaluation, BI-RAD 0 Management: Diagnostic Breast Ultrasound of the left breast. [facility], , 08/10/2024 1:32 PM. Electronically signed and approved by: Chris Scruggs M.D. Radiologist
--- NOTE | 2024-08-10 14:02 | USB ---
Reason for Exam: Clinical finding. Patient History: Menarche at age 11. Patient has no children. Postmenopausal. Risk Values: Aliza 5 year model risk: 1.9%. NCI Lifetime model risk: 5.9%. Technique: Method: Targeted. Prior Study Comparison: 10/01/2020 Bilateral Screening Mammogram, Unknown. 09/03/2022 Bilateral Screening Mammogram, Unknown. 03/28/2024 Bilateral MG 3D screening mammo w/cad, Unknown. Findings: The medial section of the breast of the left breast and the retroareolar of the left breast were scanned. Targeted ultrasound medial aspect of the left breast 7:00 to 10:00 with particular attention to the 9:00 area of pain. Additional scanning of the subareolar region. There is no solid or cystic lesion or other discrete abnormality seen. Overall Assessment: Negative, BI-RAD 1 Management: Screening Mammogram of both breasts in 8 months. Back on schedule. Further clinical management of patient's left breast pain. A clinical breast exam by your physician is recommended on an annual basis and results should be correlated with mammographic findings. This exam should not preclude additional follow-up of suspicious palpable abnormalities. Results were given to the patient verbally at the time of exam. [facility], , 08/10/2024 1:59 PM. Electronically signed and approved by: Chris Scruggs M.D. Radiologist
== END | disposition home or self-care (01) ==
LOC: RADMAMWWP 12:54
PROVIDERS: ATTEND Family Medicine
DX: R92.322 Mammographic fibroglandular density, left breast (principal); Z78.0 Asymptomatic menopausal state; N64.4 Mastodynia
CPT/HCPCS: 77061; 77065